=== PATIENT | female | born 1970 | race Caucasian/White ===

== ENCOUNTER 2020-03-18 09:50 | Outpatient (REF) | payer MEDICAID, SELFPAY ==
--- NOTE | 2020-03-18 | US_ITS ---
EXAMINATION: US ABDOMEN COMPLETE CLINICAL INFORMATION: Chronic hepatitis C. COMPARISON: Abdominal ultrasound dated 11/07/2017 TECHNIQUE: Real-time imaging of the abdominal viscera. FINDINGS: PANCREAS: The visualized head and body of the pancreas appears unremarkable. Remainder of the pancreas is obscured by bowel gas. ABDOMINAL AORTA: The proximal, mid and distal segments are normal in caliber. INFERIOR VENA CAVA: Visualized portions are normal. LIVER: Diffuse increased echogenicity. Question of mild intrahepatic biliary duct dilatation. No focal lesion demonstrated. GALLBLADDER: Surgically absent. COMMON BILE DUCT: Normal in caliber measuring 1.2 cm in diameter. RIGHT KIDNEY: Normal. No hydronephrosis. No renal calculi or focal parenchymal lesions. The kidney measures 12.0 cm in maximum dimension. LEFT KIDNEY: Normal. No hydronephrosis. No renal calculi or focal parenchymal lesions. The kidney measures 12.0 cm in maximum dimension. SPLEEN: Normal. The spleen measures 8.4 cm in maximum dimension. FREE FLUID: None. US/US abdomen complete IMPRESSION: 1. Mild diffuse increased hepatic parenchymal echogenicity, correlating with the clinical history of chronic hepatitis. No focal lesions demonstrated by ultrasound. 2. CBD measures 1.2 cm. Question of mild intrahepatic biliary duct dilatation. These findings could be related to prior cholecystectomy. Please clinically correlate, correlate with liver function tests. Further evaluation with MRCP as clinically warranted.
== END 2020-03-18 09:51 | disposition home or self-care (01) ==
LOC: HO.US 09:50
PROVIDERS: PCP Internal Medicine; Visit Provider Internal Medicine
DX: B18.2 Chronic viral hepatitis C (principal)
CPT/HCPCS: 76700

== ENCOUNTER 2023-02-07 13:49 | Outpatient (REF) | payer MEDICAID, SELFPAY ==
[2023-02-07 15:28] LABS: Alanine Aminotransferase 21 U/L (0-31); Albumin Level 3.9 g/dL (3.5-5.0); Alkaline Phosphatase 191 U/L (39-117); Aspartate Amino Transferase 11 U/L (5-31); Bilirubin Direct 0.1 mg/dL (0.0-0.5); Bilirubin Total 0.3 mg/dL (0.0-1.0); Total Protein 7.2 g/dL (6.5-8.0)
[2023-02-09 18:58] LABS: HCV Log PCR <1.18 NOT DETECTED Log IU/mL (NOT DETECTED); HepC Viral Load <15 NOT DETECTED IU/mL (NOT DETECTED)
== END 2023-02-07 13:50 | disposition home or self-care (01) ==
LOC: HO.CHCLDS 13:49
PROVIDERS: Visit Provider Family Medicine
DX: F11.20 Opioid dependence, uncomplicated (principal)
CPT/HCPCS: 36415; 80076; 87522

== ENCOUNTER 2023-04-12 10:28 | Outpatient (REF) | payer MEDICAID, SELFPAY ==
[2023-04-12 14:17] LABS: Estimated Average Glucose 292 mg/dL; Hemoglobin A1c % 11.8 % (<6.0)
[2023-04-12 14:46] LABS: Anion Gap 14 (12-20); Blood Urea Nitrogen 11 mg/dL (9-16); Calcium 9.6 mg/dL (8.4-10.2); Carbon Dioxide 27 mmol/L (22-29); Chloride 99 mmol/L (96-108); Estimated Glomerular Filt Rate > 60; Glucose Random 293 mg/dL (60-115); Potassium 3.9 mmol/L (3.3-5.1); Sodium 136 mmol/L (135-145)
== END 2023-04-12 10:29 | disposition home or self-care (01) ==
LOC: HO.CHCLDS 10:28
PROVIDERS: Visit Provider Internal Medicine
DX: E11.65 Type 2 diabetes mellitus with hyperglycemia (principal); Z79.4 Long term (current) use of insulin
CPT/HCPCS: 36415; 80048; 83036

== ENCOUNTER 2023-09-15 10:59 | Outpatient (REF) | payer MEDICAID, SELFPAY ==
[2023-09-15 14:31] LABS: MANUAL DIFF FLAG NO
[2023-09-15 14:40] LABS: Basophils Absolute Auto 0.1 X10*3/uL (0.0-0.2); Basophils Percent Auto 0.5 % (0-2); Eosinophils Absolute Auto 0.1 X10*3/uL (0.0-0.4); Eosinophils Percent Auto 1.2 % (0-4); Hematocrit 41.4 % (37.0-47.0); Hemoglobin 14.1 g/dl (12.0-16.0); Imm Gran Abs Auto 0.03 X10*3/uL (0.00-0.03); Imm Gran Pct Auto 0.3 % (0.0-0.4); Lymphocytes Absolute Auto 4.8 X10*3/uL (1.2-4.9); Lymphocytes Percent Auto 39.9 % (20-40); Mean Corpuscular HGB Conc 34.1 g/dl (31.0-35.0); Mean Corpuscular Hemoglobin 29.3 pg (27.0-33.0); Mean Corpuscular Volume 86.1 fL (80.0-98.0); Mean Platelet Volume 10.3 fL (9.4-12.3); Monocytes Absolute Auto 0.7 X10*3/uL (0.1-1.2); Monocytes Percent Auto 5.7 % (2-11); Neutrophils Absolute Auto 6.3 x10*3/uL (2.0-8.3); Neutrophils Percent Auto 52.4 % (45-73); Platelet Count 410 X10*3/uL (160-400); Red Blood Count 4.81 X10*6/uL (4.20-5.50); Red Cell Distribution Width 12.5 % (11.0-16.0); White Blood Count 11.9 X10*3/uL (4.8-10.8)
[2023-09-15 15:15] LABS: Anion Gap 16 (12-20); Blood Urea Nitrogen 11 mg/dL (9-16); Calcium 9.4 mg/dL (8.4-10.2); Carbon Dioxide 27 mmol/L (22-29); Chloride 102 mmol/L (96-108); Estimated Glomerular Filt Rate > 60; Glucose Random 134 mg/dL (60-115); Potassium 3.4 mmol/L (3.3-5.1); Sodium 142 mmol/L (135-145)
[2023-09-15 15:39] LABS: TSH reflex Free T4 0.66 uIU/mL (0.32-4.0)
[2023-09-15 15:44] LABS: Folate 8.2 ng/mL (> or = 4.0); Vitamin B12 870 pg/mL (200-900)
[2023-09-18 19:38] LABS: RPR Rapid Plasma Reagin NON-REACTIVE (NON-REACTIVE)
== END 2023-09-15 11:00 | disposition home or self-care (01) ==
LOC: HO.CHCLDS 10:59
PROVIDERS: Visit Provider Internal Medicine
DX: R41.3 Other amnesia (principal)
CPT/HCPCS: 36415; 80048; 82607; 82746; 84443; 85025; 86592

== ENCOUNTER 2023-10-24 12:55 | Outpatient (REF) | payer MEDICAID, SELFPAY ==
--- NOTE | 2023-10-24 13:03 | EEG_ITS ---
FINDINGS: Waking background activity consists of well-defined moderate voltage posterior 9 Hz alpha frequency intermixed with low voltage fast frequencies anteriorly. Occasional sharp configuration wave forms seen from the left hemisphere in the central and mid temporal distribution. Photic stimulation is without activation. Hyperventilation was omitted. IMPRESSION: This EEG is considered minimally abnormal due to occasional sharp configuration wave forms seen from the left central and temporal regions that may suggest mild cerebral irritability. Clinical correlation is suggested. If seizure disorder is strongly suspected, then a 24-48 hour ambulatory EEG is recommended. MD TIMOTHY Moore/PETR / [id number]
== END 2023-10-24 12:56 | disposition home or self-care (01) ==
LOC: HO.NEURO 12:55
PROVIDERS: PCP Internal Medicine; Visit Provider Internal Medicine
DX: R40.20 Unspecified coma (principal)
CPT/HCPCS: 95816

== ENCOUNTER 2024-01-31 07:25 | Outpatient (REF) | payer MEDICAID, SELFPAY ==
--- NOTE | 2024-01-31 07:30 | EEG_ITS ---
FINDINGS: The waking background activity consists of a moderate voltage posterior 9 to 10 hertz alpha frequency, intermixed with low-voltage fast frequencies and muscle artifact anteriorly. Recurrent isolated sharp transient seen on both hemispheres, both in the occipital region and in frontotemporal distribution. Bursts of sharp and slow wave discharges lasting approximately 1 second with high voltage sharp and slow activity suggestive of a paroxysmal disorder seen frequently throughout the record. Photic stimulation is without activation. Hyperventilation was omitted. IMPRESSION: This is an abnormal EEG due to recurrent paroxysmal bilateral occipital and frontotemporal paroxysmal discharges of sharp waves and sharp and slow complexes consistent with a seizure disorder. Clinical correlation is recommended. MD TIMOTHY Moore/PETR / [id number]
== END 2024-01-31 07:26 | disposition home or self-care (01) ==
LOC: HO.NEURO 07:25
PROVIDERS: PCP Internal Medicine; Visit Provider Internal Medicine
DX: R40.20 Unspecified coma (principal)
CPT/HCPCS: 95819

== ENCOUNTER 2024-04-23 14:28 | Outpatient (REF) | payer MEDICAID, SELFPAY ==
[2024-04-23 14:45] LABS: MANUAL DIFF FLAG NO
[2024-04-23 15:01] LABS: Basophils Absolute Auto 0.1 X10*3/uL (0.0-0.2); Basophils Percent Auto 0.7 % (0-2); Eosinophils Absolute Auto 0.2 X10*3/uL (0.0-0.4); Eosinophils Percent Auto 1.9 % (0-4); Hematocrit 41.3 % (37.0-47.0); Hemoglobin 14.3 g/dl (12.0-16.0); Imm Gran Abs Auto 0.02 X10*3/uL (0.00-0.03); Imm Gran Pct Auto 0.2 % (0.0-0.4); Lymphocytes Absolute Auto 3.8 X10*3/uL (1.2-4.9); Lymphocytes Percent Auto 42.6 % (20-40); Mean Corpuscular HGB Conc 34.6 g/dl (31.0-35.0); Mean Corpuscular Hemoglobin 29.8 pg (27.0-33.0); Mean Platelet Volume 9.5 fL (9.4-12.3); Monocytes Absolute Auto 0.6 X10*3/uL (0.1-1.2); Monocytes Percent Auto 6.3 % (2-11); Neutrophils Absolute Auto 4.3 x10*3/uL (2.0-8.3); Neutrophils Percent Auto 48.3 % (45-73); Platelet Count 364 X10*3/uL (160-400); Red Cell Distribution Width 12.8 % (11.0-16.0); White Blood Count 8.9 X10*3/uL (4.8-10.8)
[2024-04-23 15:28] LABS: Anion Gap 11 (12-20); Blood Urea Nitrogen 10 mg/dL (9-16); Calcium 8.9 mg/dL (8.4-10.2); Carbon Dioxide 27 mmol/L (22-29); Chloride 103 mmol/L (96-108); Estimated Glomerular Filt Rate > 60; Glucose Random 251 mg/dL (60-115); Sodium 137 mmol/L (135-145)
[2024-04-23 15:37] LABS: Erythrocyte Sedimentation Rate 17 MM/HR (0-20)
[2024-04-23 15:40] LABS: Albumin Level 3.9 g/dL (3.5-5.0); Bilirubin Direct 0.2 mg/dL (0.0-0.5); Bilirubin Total 0.2 mg/dL (0.0-1.0)
[2024-04-23 15:41] LABS: Aspartate Amino Transferase 19 U/L (5-31)
[2024-04-23 16:07] LABS: Alanine Aminotransferase 27 U/L (0-31); Alkaline Phosphatase 144 U/L (39-117)
== END 2024-04-23 14:29 | disposition home or self-care (01) ==
LOC: HO.LAB 14:28
PROVIDERS: Family Medicine; PCP Internal Medicine; Visit Provider Psychiatry & Neurology Neurology
DX: R51.9 Headache, unspecified (principal); F11.20 Opioid dependence, uncomplicated
CPT/HCPCS: 36415; 80048; 80076; 85025; 85652

== ENCOUNTER 2024-06-06 12:44 | Outpatient (REF) | payer MEDICAID, SELFPAY ==
--- NOTE | ~2024-06-06 | CT_ITS ---
EXAMINATION: CT HEAD WITHOUT IV CONTRAST HISTORY: MIGRAINE. TECHNIQUE: Unenhanced helical CT of the head was performed per standard departmental protocol. Coronal and sagittal reformats of the head were also evaluated. One or more of the following techniques was used for dose reduction: Automated exposure control, adjustment of the mA and/or kV according to patient size, use of iterative reconstruction technique. DLP: 777 mGy-cm COMPARISON: There are no prior studies for comparison. FINDINGS: BRAIN: The brain parenchyma is unremarkable. There is normal allen/white differentiation. The ventricular system is normal in size and configuration. There is no mass effect or midline shift. No intra- or extra-axial fluid collections are identified. SINUSES: The visualized paranasal sinuses are clear. The mastoid air cells and middle ear cavities are well pneumatized. ORBITS: The visualized orbits are unremarkable. BONES/SOFT TISSUES: The extracranial soft tissues are unremarkable. The calvarium is intact. No suspicious lytic or sclerotic lesions. CT/CT head/brain wo IV con IMPRESSION: Unremarkable unenhanced head CT. Electronically signed by: Kael Carvajal MD 06/06/2024 01:27 PM [facility]
--- OUTSIDE RECORDS SUMMARY | 2024-06-06 16:36 | XMS_ITS | Clinical Summary ---
Author Organization [facility] Address [address] [place] [address] Phone Care Team Providers Care Pricing Analyst Name Role Phone Physician, No Pcp Primary Care Provider Unavaila ble Allergies Active Allergy Reactions Criticality Noted Date Comments Iodinated Contrast Media Nausea And Vomiting Medium Medications No known medications Encounters Date Type Department Care Team Description 05/03/2024 10:23 AM EST - 05/03/2024 2:25 PM EST Emergency [facility] Emergency [address] [place] [address] Jefry Berumen MD Nausea and vomiting, unspecified vomiting type (Primary Dx) Discharge Disposition: Left Against Medical Advice from Last 3 Months Surgical History Surgery Date Site/Laterality Comments CHOLECYSTECTOMY Medical History Medical History Date Comments Depression Anxiety Social History Tobacco Use Types Packs/Day Years Used Date Smoking Tobacco: Every Day Cigarettes Smokeless Tobacco: Never Alcohol Use Standard Drinks/Week Comments Never 0 (1 standard drink = 0.6 oz pur e alcohol) Sex and Gender Information Value Date Recorded Sex Assigned at Female 05/03/2024 11:44 AM EST Gender Identity Female 05/03/2024 11:44 AM EST Sexual Orientation Straight 05/03/2024 11 :44 AM EST Job Start Date Occupation Industry Not on file Not on file Not on file Obstetrics History Last Filed Vital Signs Vital Sign Reading Time Taken Comments Blood Pressure 196/92 05/03/2024 10:20 AM EST Pulse 70 05/03/2024 10:20 AM EST Temperature 36.1 ??C (97 ??F) 05/03/2024 10:20 AM EST Respiratory Rate 16 05/03/2024 10:20 AM EST Oxygen Saturation 99% 05/03/2024 10:20 AM EST Inhaled Oxygen Concentration - - Weight 81.6 kg (180 lb) 05/03/2024 10:20 AM EST Height 157.5 cm (5' 2 ) 05/03/2024 10:20 AM EST Body Mass Index 32.92 05/03/2024 10:20 AM EST Plan of Treatment Health Maintenance Due Date Last Done Comments Breast Cancer Screening 1971 Pneumococcal Vaccine: Pediatrics (0 to 5 Years) and At-Risk Patients (6 to 64 Years) (1 of 2 - PCV) 1977 Diabetes: Annual Foot Exam 1981 Diabetes: Annual Retina Eye Exam 1981 Cervical Cancer Screening: P ap Smear 1992 Hepatitis B Vaccines (3 of 3 - 19+ 3-dose series) 08/20/2003 06/25/2003, 09/13/2001 Zoster Vaccines (1 of 2) 2021 DTaP,Tdap,and Td Vaccines (3 - Td or Tdap) 03/27/2022 03/27/2012, 09/13/2001 Colorectal Cancer Screening: Colonoscopy 04/10/2022 Hepatitis C Screening 04/10/2022 Lung Cancer Screening (Low Dose CT) 04/10/2022 Social Influencers of Health Screening 04/10/2022 Depression Screening 05/24/2023 05/24/2022 COVID-19 Vaccine ( - 2023-2 5 season) 2024 10/15/2020, 09/17/2020 Influenza Vaccine (#1) 2024 2, 01/26/2009 Diabetes: Annual Urine Albumin-Creatinine Ratio (uACR) 05/03/2024 Diabetes: Blood Sugar Contro l Test (HGBA1C) 05/03/2024 04/12/2023 Diabetes: Annual GFR (Glomerular Filtration Rate) 05/03/2025 05/03/2024 Cholesterol Screening (Lipid Panel) 09/27/2026 09/27/2021 Hepatitis A Vaccines Completed 03/11/2010, 09/10/2009 HIV Screening Completed 09/27/2021 HIB Vaccines Aged Out No longer eligi ble based on patient's age to complete this topic HPV Vaccines Aged Out No longer eligi ble based on patient's age to complete this topic IPV Vaccines Aged Out No longer eligi ble based on patient's age to complete this topic MMR Vaccines Aged Out No longer eligi ble based on patient's age to complete this topic Meningococcal ACWY Vaccine Aged Out N o longer eligible based on patient's age to complete this topic RSV Immunization Patients Under 20 months Aged Out No longer eligible b ased on patient's age to complete this topic Varicella Vaccines Aged Out No longer eligible based on patient's age to complete this topic Procedures Procedure Name Priority Date/Time Associated Diagnosis Comments TROPONIN I HIGH SENSITIVITY STAT 05/03/2024 12:[address] ABDOMEN PELVIS WO CONTRAST STAT 05/03/2024 11:56 AM EST TROPONIN I HIGH SENSITIVITY STAT 05/03/2024 11:38 AM EST ECG 12-LEAD STAT 05/03/2024 10:49 AM EST POCT GLUCOSE BLOOD Routine 05/03/2024 10 :45 AM EST HCG, SERUM, QUALITATIVE STAT Add-on 05/03/20 10:36 AM EST BETA HYDROXYBUTYRATE Add-On 05/03/2024 10:36 AM EST CBC WITH AUTO DIFFERENTIAL STAT 05/03/2024 10:36 AM EST LIPASE STAT 05/03/2024 10:36 AM EST COMPREHENSIVE METABOLIC PANEL STAT 05/03/2024 10:36 AM EST CBC AND DIFFERENTIAL STAT 05/03/2024 10:36 AM EST ECG ANNOTATED 05/03/2024 from Last 3 Months Results * Troponin I high sensitivity (NOW and then in 1 hour) (05/03/2024 12:56 PM EST) Only the most recent of2 resultswithin the time period is included. High Sensitivity Troponin I 3 <=54 ng/L LAB CHEMISTRY METHOD 05/03/2024 1:26 PM EST [facility] Blood Venous blood specimen / Unknown Venipuncture / Unknown 05/03/2024 12:56 PM EST 05/03/2024 1:03 PM EST Narrative [facility] - 05/03/2024 1:26 PM EST High levels of biotin in samples may falsely decrease hsTroponin values. ??Use caution when interpreting hsTroponin results in patients taking biotin who exhibit renal impairment (eGFR <60) or in patients taking more than 20 mg/day of biotin. Jefry Berumen MD LAB BLOOD ORDERABLES [facility] [address] [place] [address], * CT Abdomen Pelvis wo Contrast (05/03/2024 11:56 AM EST) Anatomical Region Laterality Modality Body Computed Tomogra phy 05/03/2024 12:1 2 PM EST Impressions 05/03/2024 12:17 PM EST No acute findings in the abdomen and pelvis. -------- FINAL REPORT -------- Dictated By: Diaz Rowland Dictated Date: 05/03/2024 12:12 ET Assigned Physician: Diaz Rowland Reviewed and Electronically Signed By: Diaz Rowland Signed Date: 05/03/2024 12:17 ET Workstation ID: [id number] Transcribed By: Self Edit Transcribed Date: 05/03/2024 12:12 ET Narrative 05/03/2024 12:[address] abdomen and pelvis, 05/03/2024. HISTORY: Abdominal pain, acute, no prior medical history. COMPARISON: 07/11/2023. TECHNIQUE: Noncontrast CT of the abdomen and pelvis with coronal and sagittal reformats. Dose length product: ??1092 mGy-cm. FINDINGS: Lung bases: There is a stable 3-4 mm nodule in the right middle lobe. ??Mosaic attenuation of both bases suggesting multifocal air trapping. Cardiac: Heart is mildly enlarged. ??Mild aortic annular calcification. Liver: Limited evaluation without intravenous contrast. ??No visible abnormality. Biliary: Cholecystectomy. ??Prominence of the common duct, as is often seen in the postcholecystectomy setting secondary to a reservoir effect. ??No visible ductal filling defect. Pancreas: Limited evaluation without intravenous contrast. ??Moderate parenchymal atrophy, most prominent at the level of the pancreatic head. Spleen: Limited evaluation without intravenous contrast. ??No visible abnormality. Adrenal glands: Stable small left adrenal nodule, too small for accurate YONY characterization. Kidneys: Limited evaluation without intravenous contrast. ??No visible abnormality. ??Normal appearance of the ureters. Retroperitoneum: No mass or adenopathy. Abdominal vasculature: Normal. Bowel/mesentery: No obstruction or adenopathy. ??No mass or ascites. ??Normal appendix. Abdominal wall: Normal. Pelvic nodes: No adenopathy. Pelvic organs: Normal. Bones: Mild degenerative changes of the spine. Procedure Note Diaz Rowland MD - 05/03/2024 CT abdomen and pelvis, 05/03/2024. HISTORY: Abdominal pain, acute, no prior medical history. COMPARISON: 07/11/2023. TECHNIQUE: Noncontrast CT of the abdomen and pelvis with coronal andsagittal reformats. Dose length product: 1092 mGy-cm. FINDINGS: Lung bases: There is a stable 3-4 mm nodule in the right middle lobe.Mosaic attenuation of both bases suggesting multifocal air trapping. Cardiac: Heart is mildly enlarged. Mild aortic annular calcification. Liver: Limited evaluation without intravenous contrast. No visibleabnormality. Biliary: Cholecystectomy. Prominence of the common duct, as is often seenin the postcholecystectomy setting secondary to a reservoir effect. Novisible ductal filling defect. Pancreas: Limited evaluation without intravenous contrast. Moderateparenchymal atrophy, most prominent at the level of the pancreatic head. Spleen: Limited evaluation without intravenous contrast. No visibleabnormality. Adrenal glands: Stable small left adrenal nodule, too small for accurateROI characterization. Kidneys: Limited evaluation without intravenous contrast. No visibleabnormality. Normal appearance of the ureters. Retroperitoneum: No mass or adenopathy. Abdominal vasculature: Normal. Bowel/mesentery: No obstruction or adenopathy. No mass or ascites.Normal appendix. Abdominal wall: Normal. Pelvic nodes: No adenopathy. Pelvic organs: Normal. Bones: Mild degenerative changes of the spine. IMPRESSION: No acute findings in the abdomen and pelvis. -------- FINAL REPORT -------- Dictated By: Diaz Rowland Dictated Date: 05/03/2024 12:12 ET Assigned Physician: Diaz Rowland Reviewed and Electronically Signed By: Diaz Rowland Signed Date: 05/03/2024 12:17 ET Workstation ID: [id number] Transcribed By: Self Edit Transcribed Date: 05/03/2024 12:12 ET Jefry Berumen MD IMG CT PROCEDURES * ECG 12 lead (05/03/2024 10:49 AM EST) Ventricular Rate ECG 67 BPM GEMUSE Atrial Rate 67 BPM GEMUSE P-R Interval 168 ms GEMUSE QRS Duration 90 ms GEMUSE Q-T Interval 442 ms GEMUSE QTc 467 ms GEMUSE P Wave Henning 51 degrees GEMUSE R Henning 12 degrees GEMUSE T Henning 40 degrees GEMUSE ECG Interpretation Normal sinus rhythm Normal ECG When compared with ECG of 30-NOV-2023 22:04, Sinus rhythm has replaced Electronic ventricular pacemaker Confirmed by Cynthia SHEEHAN JOHN ([id number]) on 05/04/2024 6:38:22 AM GEMUSE 05/03/2024 10:4 9 AM EST 05/04/2024 6:38 AM EST Jefry Berumen MD ECG ORDERABLES GEMUSE * (ABNORMAL) POCT Glucose, blood (05/03/2024 10:45 AM EST) Glucose POCT 288(H) 70 - 100 mg/dL 05/03/2024 10:46 AM EST [facility] Blood Capillary blood specimen / Unknown 05/03/2024 10:45 AM EST 05/03/2024 10:47 AM EST Jefry Berumen MD LAB POINT OF CARE TE ST DOCKED DEVICE UNSOLICITED RESULTS [facility] [address] [place] [address], * (ABNORMAL) Beta hydroxybutyrate (05/03/2024 10:36 AM EST) Beta-Hydroxybu tyrate 4.6(H) 0.2 - 2.8 mg/dL LAB CHEMISTRY METHOD 05/03/2024 11:56 AM EST [facility] Blood Venous blood specimen / Unknown Venipuncture / Unknown 05/03/2024 10:36 AM EST 05/03/2024 11:27 AM EST Jefry Berumen MD LAB BLOOD ORDERABLES Performing Organization Address [facility]/ZIP Co de Phone Number [facility] [address] [place] [address], * (ABNORMAL) CBC auto differential (05/03/2024 10:36 AM EST) WBC 13.7(H) 4.8 - 10.8 K/mcL LAB HEMETOLOGY METHOD 05/03/2024 11:32 AM [facility] RBC 5.30(H) 3.80 - 4.80 M/mcL LAB HEMETOLOGY METHOD 05/03/2024 11:32 AM [facility] Hemoglobin 15.7 11.5 - 16.0 g/dL LAB HEMETOLOGY METHOD 05/03/2024 11:32 AM [facility] Hematocrit 46.7 35.0 - 47.0 % LAB HEMETOLOGY METHOD 05/03/2024 11:32 AM [facility] MCV 87.9 79.0 - 98.0 FL LAB HEMETOLOGY METHOD 05/03/2024 11:32 AM [facility] MCH 29.6 27.0 - 32.0 pcg LAB HEMETOLOGY METHOD 05/03/2024 11:32 AM [facility] MCHC 33.6 32.0 - 37.0 g/dL LAB HEMETOLOGY METHOD 05/03/2024 11:32 AM [facility] RDW 13.0 11.0 - 15.0 % LAB HEMETOLOGY METHOD 05/03/2024 11:32 AM [facility] Platelets 428(H) 130 - 400 K/mcL LAB HEMETOLOGY METHOD 05/03/2024 11:32 AM [facility] MPV 9.9 7.0 - 11.0 FL LAB HEMETOLOGY METHOD 05/03/2024 11:32 AM [facility] NRBC 0.0 <1.0 % LAB HEMETOLOGY METHOD 05/03/2024 11:32 AM [facility] NRBC Absolute 0.00 <0.10 K/mcL LAB HEMETOLOGY METHOD 05/03/2024 11:32 AM [facility] Neutrophils Relative 76.2 % LAB HEMETOLOGY METHOD 05/03/2024 11:32 AM [facility] Lymphocytes Relative 17.2 % LAB HEMETOLOGY METHOD 05/03/2024 11:32 AM [facility] Monocytes Relative 5.7 % LAB HEMETOLOGY METHOD 05/03/2024 11:32 AM [facility] Eosinophils Relative 0.3 % LAB HEMETOLOGY METHOD 05/03/2024 11:32 AM [facility] Basophils Relative 0.4 % LAB HEMETOLOGY METHOD 05/03/2024 11:32 AM [facility] Immature Granulocytes Relative 0.2 % LAB HEMETOLOGY METHOD 05/03/2024 11:32 AM [facility] Neutrophils Absolute 10.40(H) 1.50 - 7.00 K/mcL LAB HEMETOLOGY METHOD 05/03/2024 11:32 AM EST [facility] Lymphocytes Absolute 2.35 1.00 - 5.00 K/mcL LAB HEMETOLOGY METHOD 05/03/2024 11:32 AM EST [facility] Monocytes Absolute 0.78 0.20 - 1.00 K/mcL LAB HEMETOLOGY METHOD 05/03/2024 11:32 AM EST [facility] Eosinophils Absolute 0.04 0.00 - 0.50 K/mcL LAB HEMETOLOGY METHOD 05/03/2024 11:32 AM EST [facility] Basophils Absolute 0.05 0.00 - 0.20 K/[facility] LAB HEMETOLOGY METHOD 05/03/2024 11:32 AM EST [facility] Immature Granulocytes Absolute 0.03 0.00 - 0.03 K/[facility] HEMETOLOGY METHOD 05/03/2024 11:32 AM EST [facility] Blood Venous blood specimen / Unknown Venipuncture / Unknown 05/03/2024 10:36 AM EST 05/03/2024 11:27 AM EST Jefry Berumen MD LAB BLOOD ORDERABLES [facility] [address] [place] [address], [place] [phone] * hCG, serum, qualitative (05/03/2024 10:36 AM EST) hCG Qual Negative Negative 05/03/2024 12:34 PM EST [facility] Blood Venous blood specimen / Unknown Venipuncture / Unknown 05/03/2024 10:36 AM EST 05/03/2024 11:27 AM EST Jefry Berumen MD LAB BLOOD ORDERABLES [facility] [address] [place] [address], [place] [phone] * Lipase (05/03/2024 10:36 AM EST) Lipase 19 13 - 75 unit/L LAB CHEMISTRY METHOD 05/03/2024 11:56 AM [facility] Blood Venous blood specimen / Unknown Venipuncture / Unknown 05/03/2024 10:36 AM EST 05/03/2024 11:27 AM EST Jefry Berumen MD LAB BLOOD ORDERABLES [facility] [address] [place] [address], * (ABNORMAL) Comprehensive metabolic panel (05/03/2024 10:36 AM EST) Pathologist [facility] Sodium 135 133 - 145 mmol/L LAB CHEMISTRY METHOD 05/03/2024 11:56 AM [facility] Potassium 3.8 3.5 - 5.5 mmol/L LAB CHEMISTRY METHOD 05/03/2024 11:56 AM [facility] Chloride 101 96 - 110 mmol/L LAB CHEMISTRY METHOD 05/03/2024 11:56 AM [facility] CO2 27 21 - 32 mmol/L LAB CHEMISTRY METHOD 05/03/2024 11:56 AM [facility] Anion Gap 7 3 - 11 LAB CHEMISTRY METHOD 05/03/2024 11:56 AM [facility] Glucose 264(H) 70 - 100 mg/dL LAB CHEMISTRY METHOD 05/03/2024 11:56 AM [facility] BUN 12 5 - 25 mg/dL LAB CHEMISTRY METHOD 05/03/2024 11:56 AM [facility] Creatinine 0.68 0.50 - 1.10 mg/dL LAB CHEMISTRY METHOD 05/03/2024 11:56 AM [facility] eGFR 105 >=60 mL/min/1. 73m2 LAB CHEMISTRY METHOD 05/03/2024 11:56 AM [facility] Comment:Calculation based on the??Chronic Kidney Disease Epidemiology Collaboration (CKD-EPI) equation refit??without adjustment for race. BUN/Creatinine Ratio 17.6 LAB CHEMISTRY METHOD 05/03/2024 11:56 AM [facility] Calcium 9.6 8.5 - 10.5 mg/dL LAB CHEMISTRY METHOD 05/03/2024 11:56 AM [facility] AST (SGOT) 20 10 - 42 unit/L LAB CHEMISTRY METHOD 05/03/2024 11:56 AM [facility] ALT (SGPT) 36 10 - 60 unit/L LAB CHEMISTRY METHOD 05/03/2024 11:56 AM [facility] Alkaline Phosphatase 178(H) 42 - 121 unit/L LAB CHEMISTRY METHOD 05/03/2024 11:56 AM [facility] Total Protein 8.0 6.0 - 8.0 g/dL LAB CHEMISTRY METHOD 05/03/2024 11:56 AM [facility] Albumin 4.1 3.2 - 5.0 g/dL LAB CHEMISTRY METHOD 05/03/2024 11:56 AM [facility] Total Bilirubin 0.3 0.0 - 1.4 mg/dL LAB CHEMISTRY METHOD 05/03/2024 11:56 AM [facility] Blood Venous blood specimen / Unknown Venipuncture / Unknown 05/03/2024 10:36 AM EST 05/03/2024 11:27 AM EST Jefry Berumen MD LAB BLOOD ORDERABLES [facility] [address] [place] [address], * ECG-Annotated (05/03/2024) Provider Onbase ECG ORDERABLES from Last 3 Months Care Teams Pricing Analyst Relationship Specialty Start Date End Date Physician, No Pcp PCP - General 05/03/24
--- OUTSIDE RECORDS SUMMARY | 2024-06-06 16:37 | XMS_ITS | Encounter Summary ---
Author Organization [employer] Address [address] [facility] 7 [place] [address] Care Team Providers Care Television Audio Engineer Name Role Phone Bonnie Gay MD Primary Care Provider [phone] Reason for Visit * Reason Onset Date Comments Appointment Request 08/18/2022 Encounter Details Date Type Department Care Team ([facility] st Contact Info) Description 08/18/[address] [facility] [address] [place] [address] Bonnie Gay MD [address] [place], [place] [phone] Appointment Request Social History Tobacco Use Types Packs/Day Years Used Date Smoking Tobacco: Former Cigarettes Smokeless Tobacco: Never Alcohol Use Standard Drinks/Week Comments Never 0 (1 standard drink = 0.6 oz pur e alcohol) Depression Answer Date Recorded Patient Health Questionnaire-9 Score 6 05/24/2022 Depression Answer Date Recorded Patient Health Questionnaire-2 Score 0 05/24/2022 Comments Unknown Sex and Gender Information Value Date Recorded Sex Assigned at Female 03/07/2022 10:16 AM EDT Legal Sex Female 10:16 AM EDT Gender Identity Female 03/07/2022 10:16 AM EDT Sexual Orientation Straight 03/07/2022 10 :16 AM EDT COVID-19 Exposure Response Date Recorded In the last 10 days, have yo u been in contact with someone who was confirmed or suspected to have Coronavirus/COVID-19? No / Unsure 07/25/2022 9:28 AM EDT documented as of this encounter Miscellaneous Notes * Telephone Encounter - Og Motta - 08/18/2022 10:01 AM EDT Tc from pt requesting to R/S appt on 08/18/22 ( RECALL DM due for A1c ) Please contact pt at [phone] documented in this encounter Plan of Treatment Upcoming Encounters Date Type Department Care Team ([facility] st Contact Info) Description 07/22/2024 9:00 AM EDT Clinical Support [facility] [address] [place] [address] Leslee Torres, RN documented as of this encounter Visit Diagnoses Diagnosis Opioid dependence, uncomplicated (CMS/HCC)- Primary documented in this encounter Additional Health Concerns Assessment Noted Time PHQ-9 Depression Total Score: 6 05/24/19 23 11:43 AM EST documented as of this encounter Care Teams Television Audio Engineer Relationship Specialty Start Date End Date Bonnie Gay MD [address] [place] [address] PCP - General Internal Medicine 04/17/15 documented as of this encounter
--- OUTSIDE RECORDS SUMMARY | 2024-06-06 16:37 | XMS_ITS | Encounter Summary ---
Author Organization [employer] Address [address] [place] [address] 7 [place] [address] Care Team Providers Care Woodworking Shop Laborer Name Role Phone Bonnie Gay MD Primary Care Provider [phone] Reason for Visit * Reason Comments Med Refill Encounter Details Date Type Department Care Team (Late Contact Info) Description 06/19/2023 Refill [facility] DIABETES/NUTRITION [address] [place], [place] [phone] Bonnie Gay MD 505 [place], [place] [phone] Primary insomnia; Insomnia, unspecified Social History Tobacco Use Types Packs/Day Years Used Date Smoking Tobacco: Every Day Cigarettes 1 30 Smokeless Tobacco: Never Comments:Would like to quit but it's so hard. Alcohol Use Standard Drinks/Week Comments Never 0 [...] Orientation Straight 03/07/2022 10 :16 AM EDT documented as of this encounter Plan of Treatment Upcoming Encounters Date Type Department Care Team ([facility] Contact Info) Description 07/22/2024 9:00 AM EDT Clinical Support [facility] CHC MED & PEDS [address] [place] [address] Leslee Torres, RN documented as of this encounter Visit Diagnoses Diagnosis Primary insomnia Persistent disorder of initiating or maintaining sleep Insomnia, unspecified documented in this encounter Additional Health Concerns Assessment Noted Time PHQ-9 Depression Total Score: 6 05/24/19 23 11:43 AM EST documented as of this encounter Care Teams Woodworking Shop Laborer Relationship Specialty Start Date End Date Bonnie Gay MD [address] [place] [address] [place] Watters [address] PCP - General Internal Medicine 04/17/15 documented as of this encounter
--- OUTSIDE RECORDS SUMMARY | 2024-06-06 16:37 | XMS_ITS | Encounter Summary ---
Author Organization [employer] Address [address] [place] [address] 7 [place] [address] Care Team Providers Care Kier Drier Name Role Phone Bonnie Gay MD Primary Care Provider [phone]- [phone] Encounter Details Date Type Department Care Team ([facility] Contact Info) Description 09/26/2023 Orders Only [facility] MED & PEDS 505 [place] [address] Bonnie Gay MD 505 [place] [address] Social History Tobacco Use Types Packs/Day Years [...] Upcoming Encounters Date Type Department Care Team (Late st Contact Info) Description 07/22/2024 9:00 AM EDT Clinical Support [facility] MED & PEDS [address] [place] [address] Leslee Torres, RN documented as of this encounter Visit Diagnoses Not on filedocumented in this encounter Additional Health Concerns Assessment Noted Time PHQ-9 Depression Total Score: 6 05/24/19 23 11:43 AM EST documented as of this encounter Care Teams Kier Drier Relationship Specialty Start Date End Date Bonnie Gay MD 505 [place] [address] PCP - General Internal Medicine 04/17/15 documented as of this encounter
--- OUTSIDE RECORDS SUMMARY | 2024-06-06 16:37 | XMS_ITS | Encounter Summary ---
Author Organization [employer] Address [address] [place] [address] 7t [place] [address] Care Team Providers Care Telecommunications Technician Name Role Phone Bonnie Gay MD Primary Care Provider [phone] Reason for Visit * Reason Onset Date Comments Med Refill 05/14/2024 Encounter Details Date Type Department Care Team (Late Contact Info) Description 05/14/2024 Refill [facility] MEDICINE [address] [place], [place] [phone] Leslee Torres, RN Opioid dependence, uncomplicated ([facility]) Social History Tobacco Use Types Packs/Day Years [...] Description 07/22/2024 9:00 AM EDT Clinical Support [facility] CHC MED & PEDS [address] [place], [place] [phone] Leslee Torres, RN documented as of this encounter Visit Diagnoses Diagnosis Opioid dependence, uncomplicated (CMS/HCC) documented in this encounter Additional Health Concerns Assessment Noted Time PHQ-9 Depression Total Score: 6 05/24/19 23 11:43 AM EST documented as of this encounter Care Teams Telecommunications Technician Relationship Specialty Start Date End Date Bonnie Gay MD 505 [place] [address] PCP - General Internal Medicine 04/17/15 documented as of this encounter
--- OUTSIDE RECORDS SUMMARY | 2024-06-06 16:37 | XMS_ITS | Encounter Summary ---
Author Organization [employer] Address [address] [place] [address] 7 [place] [address] Care Team Providers Care Turf Sales Person Name Role Phone Bonnie Gay MD Primary Care Provider [phone] Reason for Referral * Imaging (Routine) - Canceled Specialty Diagnoses / Procedures Referred By Contac t Referred To Contact Diagnoses LOC (loss of consciousness) (CMS/HCC) Procedures Ambulatory EEG Bonnie Gay MD [address] [place] [phone] Phone: tel: fax: Referral ID Status Reason Start Date Expiration Date V isits Requested Visits Authorized [id number] Canceled 11/08/2023 11/07/2024 1 1 * Imaging (Routine) - Authorized Specialty Diagnoses / Procedures Referred By Contismael t Referred To Contact Diagnoses LOC (loss of consciousness) ([facility]) Procedures Ambulatory EEG Bonnie Gay MD 505 [place] [address] Phone: tel: fax: [address] Phone: tel: fax: Referral ID Status Reason Start Date Expiration Date V isits Requested Visits Authorized [id number] Authorized 11/01/2023 10/31/2024 1 1 Encounter Details Date Type Department Care Team (Late Contact Info) Description 11/01/2023 Orders Only [facility] MED & PEDS [address] [place] [address] Bonnie Gay MD [address] [place] [address] LOC (loss of consciousness) ([facility]) (Primary Dx) Social History Tobacco Use Types Packs/Day Years [...] Encounters Date Type Department Care Team (Late Contact Info) Description 07/22/2024 9:00 AM EDT Clinical Support [facility] MED & PEDS [address] [place] [address] Leslee Torres, CHIRAG Scheduled Orders Name Type Priority Associated Diagnoses Orde r Schedule Ambulatory EEG Neurology Routine LOC (loss of consciousness) ([facility]) Expected: 11/01/2023 (Approximate), Expires: 10/31/2024 Ambulatory EEG Neurology Routine LOC (loss of consciousness) ([facility]) Expected: 11/08/2023 (Approximate), Expires: 11/07/2024 documented as of this encounter Visit Diagnoses Diagnosis LOC (loss of consciousness) ([facility])- Primary Other alteration of consciousness documented in this encounter Additional Health Concerns Assessment Noted Time PHQ-9 Depression Total Score: 6 05/24/19 23 11:43 AM EST documented as of this encounter Care Teams Turf Sales Person Relationship Specialty Start Date End Date Bonnie Gay MD [address] [place] [id number] PCP - General Internal Medicine 04/17/15 documented as of this encounter
--- OUTSIDE RECORDS SUMMARY | 2024-06-06 16:37 | XMS_ITS | Encounter Summary ---
Author Organization [employer] Address [address] [facility] 7t [place] [address] Care Team Providers Care Mud Worker Name Role Phone Bonnie Gay MD Primary Care Provider [phone] Reason for Visit * Reason Comments OBAT F/U Encounter Details Date Type Department Care Team ([facility] Contact Info) Description 2024 9:00 AM EST Office Visit [facility] MED & PEDS [address] [place], [place] [phone] Tucker Moore MD 230 [place] [address] Opioid type dependence, continuous (CMS/HCC) (Primary Dx) Social History Tobacco Use Types [...] AM EDT documented as of this encounter Progress Notes * Tucker Moore MD - 2024 9:00 AM EST Patient here today for Opioid Dependence RV. Patient on current Suboxone dose of 20/5 mg on a 8-week schedule. Patient reports taking medication as prescribed, no adverse effects. Pt has been in the program for 9 years. Induction date: 06/02/15. Patient connected with integrated integrated therapist. No longer seeing Clemente Morin for psych. Mass CLAMSHELL OPERATOR reviewed by provider. COVID vaccinated. Last PCP Appt: 09/14/23 LFTs done 05/03/2024 T-spot - Negative 08/06/18 Hep A and Hep B - Immune Hep C: HCV RNA VL undetectable (09/27/21) LAST OBAT VISIT 04/01/2024 UTOX: POS BUP, THC, TCA NEG ALL OTHER SUBSTANCES Patient presents for OUD OBAT Denies relapse or cravings Tolerating the current dose of Buprenorphine/Naloxone 20mg/5mg daily States post-menopausal for >1 year Denies any risk for HIV (states zero risk); declines PrEP History of Hep C; previous HCV RNA VL undetectable Suboxone dosing schedule and management of side effects reviewed Recovery support, harm reduction, and behavioral health attendance reviewed Appointment for 7 weeks provided (due to holiday schedule) Recommended to check LFT Patient expressed understanding and agreement with continuing plan of care TODAY OBAT VISIT 2024 UTOX: POS BUP, THC NEG ALL OTHER SUBSTANCES Patient presents for OUD OBAT Denies relapse or cravings Tolerating the current dose of Buprenorphine/Naloxone 20mg/5mg daily States post-menopausal for >1 year Denies any risk for HIV (states zero risk); declines PrEP History of Hep C; previous HCV RNA VL undetectable Suboxone dosing schedule and management of side effects reviewed Recovery support, harm reduction, and behavioral health attendance reviewed Appointment for 9 weeks provided Patient expressed understanding and agreement with continuing plan of care Review of Systems Psychiatric/Behavioral: Negative for behavioral problems and dysphoric mood. The patient is not nervous/anxious. Physical Exam Constitutional: Appearance: Normal appearance. Pulmonary: Effort: Pulmonary effort is normal. Neurological: Mental Status: She is alert. Psychiatric: Mood and Affect: Mood normal. Behavior: Behavior normal. Jo-Ann was seen today for obat f/u . Diagnoses and all orders for this visit: Opioid type dependence, continuous (CMS/HCC) (Primary) - POCT KAYLA-14 Urine Drug Screen Patient presents for a routine OUD OBAT visit Discussed treatment options for opioid dependence Patient is tolerating current treatment of Buprenorphine/Naloxone SL Discussed behavioral modification and accessing services Counseling provided with a focus on support system, tools for achieving/maintaining recovery Reviewed barriers for these goals Discussed strategies to address when faced situations that may trigger use Continue with current visit schedule Narcan use discussed [place] reviewed Reviewed risk assessment for family planning, STI and PrEP Follow up in 9 weeks This information has been disclosed to you from records protected by federal confidentiality rules (42 CFR Part 2). The federal rules prohibit you from making any further disclosure of information inthis record that identifies a patient as having or having had a substance use disorder either directly, by reference to publicly available information, or through verification of such identification by another person unless further disclosure is expressly permitted by the written consent of the individual whose information is being disclosed or as otherwise permitted by (see2.3.1). The federal rules restrict any use of the information to investigate or prosecute with regard to a crime any patient with a substance use disorder, except as provided at 2.12??(5) and 2.65. documented in this encounter Plan of Treatment Upcoming Encounters Date Type Department Care Team (Late st Contact Info) Description 07/22/2024 9:00 AM EDT Clinical Support [facility] MED & PEDS [address] [place] [address] Leslee Torres RN documented as of this encounter Procedures Procedure Name Priority Date/Time Associated Diagnosis Comments POCT KAYLA-14 URINE DRUG SCREEN Routine 2024 9:08 AM EST Opioid type dependence, continuous ([facility]) documented in this encounter Results * POCT KAYLA-14 Urine Drug Screen (2024 9:08 AM EST) THC Positive Cocaine Screen, Urine Negative Opiate Screen, Urine Negative Methamphetamine Screen Urine Negative Amphetamine Screen, Urine Negative Benzodiazepines Screen, Urine Negative Barbiturate Screen, Urine Negative Methadone Screen, Urine Negative Buprenophine Screen, Urine Positive TCA, Urine Negative MDMA Urine Negative ng/mL Oxycodone Screen, Urine Negative Phencyclidine (PCP), Urine Negative Propoxyphene, Urine Negative Fentanyl, Urine Negative Urine Urine specimen obtained by clean catch procedure / Unknown 2024 9:08 AM EST Tucker Moore MD POINT OF CARE TEST ENTER/EDIT OR DERABLES Final Result documented in this encounter Visit Diagnoses Diagnosis Opioid type dependence, continuous ([facility])- Primary Opioid type dependence, continuous documented in this encounter Additional Health Concerns Assessment Noted Time PHQ-9 Depression Total Score: 6 05/24/19 23 11:43 AM EST documented as of this encounter Care Teams Mud Worker Relationship Specialty Start Date End Date Bonnie Gay MD [address] [place] [address] PCP - General Internal Medicine 04/17/15 documented as of this encounter
--- OUTSIDE RECORDS SUMMARY | 2024-06-06 16:37 | XMS_ITS | Encounter Summary ---
Author Organization [employer] Address [address] [place] [address] [place] [address] Care Team Providers Care Odd Bundle Worker Name Role Phone Bonnie Gay MD Primary Care Provider [phone]- [phone] Reason for Visit * Reason Onset Date Comments Nurse Triage 10/21/2022 Encounter Details Date Type Department Care Team ([facility] st Contact Info) Description 10/21/2022 Telephone [facility] CHC MED & PEDS [address] [place] [address] Bonnie Gay MD [address] [place] [address] Nurse Triage Social History Tobacco Use Types Packs/Day Years [...] encounter Miscellaneous Notes * Telephone Encounter - Shari Crook RN - 10/21/2022 3:44 PM EDT Triage call Pt reports woke up yesterday morning 10/20 , with left shoulder pain. Pt didn't recall any injury, heavy lifting or anything unusual in activity the day before. Pt is able to bend elbow but, can't lift arm to shoulder level. Unable to make fully closed fist and has some numbness in left hand/fingers. Pt denies any neck pain. Pt did go to ED but, left due to wait time. Pt is taking aleve for pain with some effect. Pt is advised to use ice/heat for pain and give arm support. Apt 10/25 @1100am [facility]. Pt insurance is verified as active prior to booking. Protocol Used: Shoulder Pain (Adult) Protocol-Based Disposition: See in Office or Video Visit within 3 Days Video visit not offered Positive Triage Question: * Moderate pain (e.g., interferes with normal activities) and present > 3 days * All higher-acuity triage questions were negative Care Advice Discussed: * Reassurance and Education - Shoulder Pain * Pain Medicines * Pain Medicines - Extra Notes and Warnings * Reasons To Call Back - Chest pain or difficulty breathing occurs - Moderate pain (e.g., interferes with normal activities) lasts over 3 days - Mild pain lasts over 7 days - You become worse * Use a Cold Pack for Pain * Use Heat on Area After 48 Hours * Rest vs. Movement * Telephone Encounter - Erinn Bunch - 10/21/2022 3:16 PM EDT Symptom: Shoulder Pain - Not From Injury (left) Outcome: Schedule an urgent appointment (within 1 hour) or talk to a nurse or provider soon Reason: Can't use the shoulder normally The caller accepted this outcome documented in this encounter Plan of Treatment Upcoming Encounters Date Type Department Care Team (Late st Contact Info) Description 07/22/2024 9:00 AM EDT Clinical Support [facility] MED & PEDS [address] [place] [address] Leslee Torres, RN documented as of this encounter Visit Diagnoses Not on filedocumented in this encounter Additional Health Concerns Assessment Noted Time PHQ-9 Depression Total Score: 6 05/24/19 23 11:43 AM EST documented as of this encounter Care Teams Odd Bundle Worker Relationship Specialty Start Date End Date Bonnie Gay MD [address] [place] [id number] PCP - General Internal Medicine 04/17/15 documented as of this encounter
--- OUTSIDE RECORDS SUMMARY | 2024-06-06 16:37 | XMS_ITS | Encounter Summary ---
Author Organization [employer] Address [address] [facility] 7 [place] [address] Care Team Providers Care Refrigeration Manager Name Role Phone Bonnie Gay MD Primary Care Provider [phone] Reason for Visit * Reason Onset Date Comments new med 11/13/2023 Encounter Details Date Type Department Care Team (Late st Contact Info) Description 11/13/2023 Telephone [facility] MEDICINE [address] [place] [address] Bonnie Gay MD [address] [place], [place] [phone] new med Social History Tobacco Use Types Packs/Day Years [...] encounter Miscellaneous Notes * Telephone Encounter - Mily Cantrell - 11/13/2023 12:06 PM EDT Tc from pt requesting migraine medication that can be taken with her regular meds, stated discussedwith PCP before. documented in this encounter Plan of Treatment Upcoming Encounters Date Type Department Care Team ([facility] st Contact Info) Description 07/22/2024 9:00 AM EDT Clinical Support [facility] MED & PEDS [address] [place] [address] Leslee Torres, RN documented as of this encounter Visit Diagnoses Not on filedocumented in this encounter Additional Health Concerns Assessment Noted Time PHQ-9 Depression Total Score: 6 05/24/19 23 11:43 AM EST documented as of this encounter Care Teams Refrigeration Manager Relationship Specialty Start Date End Date Bonnie Gay MD [address] [place] [address] PCP - General Internal Medicine 04/17/15 documented as of this encounter
--- OUTSIDE RECORDS SUMMARY | 2024-06-06 16:37 | XMS_ITS | Encounter Summary ---
Author Organization [employer] Address [address] [place] [address] 7 [place] [address] Care Team Providers Care Dry Wall Plasterer Name Role Phone Bonnie Gay MD Primary Care Provider [phone]- [phone] Reason for Visit * Reason Comments Med Refill Encounter Details Date Type Department Care Team (Late Contact Info) Description 05/17/2024 Refill [facility] CHC MED & PEDS [address] [place] [address] Bonnie Gay MD 505 [place] [address] Primary insomnia; Insomnia, unspecified Social History Tobacco [...] Description 07/22/2024 9:00 AM EDT Clinical Support [facility] CHC MED & PEDS [address] [place] [address] Leslee Torres, RN documented as of this encounter Visit Diagnoses Diagnosis Primary insomnia Persistent disorder of initiating or maintaining sleep Insomnia, unspecified documented in this encounter Additional Health Concerns Assessment Noted Time PHQ-9 Depression Total Score: 6 05/24/19 23 11:43 AM EST documented as of this encounter Care Teams Dry Wall Plasterer Relationship Specialty Start Date End Date Bonnie Gay MD [address] [place] [address] [place] [id number] PCP - General Internal Medicine 04/17/15 documented as of this encounter
--- OUTSIDE RECORDS SUMMARY | 2024-06-06 16:37 | XMS_ITS | Encounter Summary ---
Author Organization [employer] Address [address] [facility] 7t [place] [address] Care Team Providers Care Bag Sewer Name Role Phone Bonnie Gay MD Primary Care Provider [phone] Encounter Details Date Type Department Care Team (Latest Contact Info) Description 2024 Travel Social History Tobacco Use Types Packs/Day Years [...] 07/22/2024 9:00 AM EDT Clinical Support [facility] MED & PEDS [address] [place] [address] Leslee Torres, RN documented as of this encounter Visit Diagnoses Not on filedocumented in this encounter Additional Health Concerns Assessment Noted Time PHQ-9 Depression Total Score: 6 05/24/19 23 11:43 AM EST documented as of this encounter Care Teams Bag Sewer Relationship Specialty Start Date End Date Bonnie Gay MD [address] [place] [address] PCP - General Internal Medicine 04/17/15 documented as of this encounter
--- OUTSIDE RECORDS SUMMARY | 2024-06-06 16:37 | XMS_ITS | Encounter Summary ---
Author Organization [employer] Address [address] [facility] 7 [place] [address] Care Team Providers Care Field Sales Consultant Name Role Phone Bonnie Gay MD Primary Care Provider [phone]- [phone] Reason for Visit * Reason Onset Date Comments Call Back Request 08/23/2023 Encounter Details Date Type Department Care Team ([facility] st Contact Info) Description 08/23/2023 Telephone [facility] MEDICINE [address] [place] [address] Bonnie Gay MD 505 [place], [place] [phone] Call Back Request Social History Tobacco Use Types Packs/Day [...] encounter Miscellaneous Notes * Telephone Encounter - Wing Andres RN - 08/23/2023 3:34 PM EDT Just for your FYI. Pt stated her glucose sensor came off when taking off her bra and was asking fornext steps. Informed pt that she would have to call the company to send another sensor, or do finger sticks for a week before putting on the next sensor. Pt stated she would do finger sticks for a week and verbalized understanding and acceptance of plan. * Telephone Encounter - Mily Cantrell - 08/23/2023 9:55 AM EDT Tc from pt requesting a call back, stated when taking out her bra, sensor came out and don't know what to do. documented in this encounter Plan of Treatment Upcoming Encounters Date Type Department Care Team (Late st Contact Info) Description 07/22/2024 9:00 AM EDT Clinical Support [facility] MED & PEDS [address] [place] [address] Leslee Torres, CHIRAG documented as of this encounter Visit Diagnoses Not on filedocumented in this encounter Additional Health Concerns Assessment Noted Time PHQ-9 Depression Total Score: 6 05/24/19 23 11:43 AM EST documented as of this encounter Care Teams Field Sales Consultant Relationship Specialty Start Date End Date Bonnie Gay MD [address] [place] [address] PCP - General Internal Medicine 04/17/15 documented as of this encounter
--- OUTSIDE RECORDS SUMMARY | 2024-06-06 16:37 | XMS_ITS | Encounter Summary ---
Author Organization [employer] Address [address] [place] [address] 7 [place] [address] Care Team Providers Care Fish And Wildlife Biologist Name Role Phone Bonnie Gay MD Primary Care Provider [phone] Reason for Referral * Consultation (Routine) - Closed Specialty Diagnoses / Procedures Referred By Contac t Referred To Contact Neurology Diagnoses LOC (loss of consciousness) (CMS/HCC) Disturbance of memory Bonnie Gay MD [address] [place] [address] Phone: tel: fax: Robel Rodriguez MD [address] [place] [address], [address] [place] [address] Phone: tel: fax: Referral ID Status Reason Start Date Expiration Date V isits Requested Visits Authorized [id number] Closed Specialty Services Required 02/14/2024 02/13/2025 1 1 Encounter Details Date Type Department Care Team ([facility] st Contact Info) Description 02/14/2024 Orders Only [facility] [address] [place], [place] [phone] Bonnie Gay MD [address] [place], [place] [phone] LOC (loss of consciousness) (CMS/HCC) (Primary Dx); Disturbance of memory Social History Tobacco Use Types Packs/Day Years [...] Upcoming Encounters Date Type Department Care Team ([facility] st Contact Info) Description 07/22/2024 9:00 AM EDT Clinical Support [facility] [address] [place] [address] Leslee Torres, RN documented as of this encounter Procedures Procedure Name Priority Date/Time Associated Diagnosis Comments AMB REFERRAL TO NEUROLOGY Routine 04/23/2024 LOC (loss of consciousness) (CMS/HCC) Disturbance of memory documented in this encounter Results * Referral to Neurology (04/23/2024) us Bonnie Gay MD OUTPATIENT REFERRAL ORDERAB LES Final Result documented in this encounter Visit Diagnoses Diagnosis LOC (loss of consciousness) (CMS/HCC)- Primary Other alteration of consciousness Disturbance of memory Memory loss documented in this encounter Additional Health Concerns Assessment Noted Time PHQ-9 Depression Total Score: 6 05/24/19 23 11:43 AM EST documented as of this encounter Care Teams Fish And Wildlife Biologist Relationship Specialty Start Date End Date Bonnie Gay MD [address] [place] [address] PCP - General Internal Medicine 04/17/15 documented as of this encounter
--- OUTSIDE RECORDS SUMMARY | 2024-06-06 16:37 | XMS_ITS | Clinical Summary ---
Author Organization [employer] Address [address] [place] [address] 7t [place] [address] Care Team Providers Care Manager Distribution Name Role Phone Bonnie Gay MD Primary Care Provider [phone]- [phone] Allergies Active Allergy Reactions Criticality Noted Date Comments Venlafaxine 04/18/2022 Medications albuterol (ProAir HFA) 108 (90 Base) MCG/ACT inhaler Inhale 2 puffs every 4 (four) hours if needed. 022 Active glucose-vitamin C 4-6 GM-MG oral gel 1 tab if FS < 70 mg/dl or if having symptoms of hypoglycemia 021 Active hydrOXYzine pamoate (Vistaril) 50 MG capsule TAKE ONE CAPSULE FOUR TIMES DAILY 022 Active meclizine (Antivert) 12.5 MG tablet Take 12.5 mg by mouth every 8 (eight) hours. 022 Active nicotine polacrilex (Commit) 2 MG lozengeIndicatio ns:Tobacco dependence Dissolve 1 lozenge (2 mg) in the mouth every 2 (two) hours if needed for smoking cessation. 100 lozenge 3 023 Active FREESTYLE LITE test stripIndications :Type 2 diabetes mellitus with hyperglycemia, with long-term current use of insulin ([facility]) TEST BLOOD SUGAR FIVE TIMES DAILY 200 strip 5 023 Active Easy Touch Lancets 33G/Twist misc TEST BLOOD SUGAR DAILY 100 each 3 023 Active Elastic Bandages & Supports (Wrist Brace Deluxe) miscIndications: Carpal tunnel syndrome of left wrist To use daily 1 each 023 Active albuterol (2.5 MG/3ML) 0.083% nebulizer solution INHALE ONE AMPULE USING A NEBULIZER THREE TIMES DAILY NEEDED 90 mL 1 023 Active Trulicity 0.75 MG/0.5ML solution pen-injectorIndi cations:Type 2 diabetes mellitus with hyperglycemia, with long-term current use of insulin ([facility]) INJECT ONE PEN (=0.75MG) SUBCUTANEOUSLY ONCE A WEEK DIRECTED 2 mL 3 023 Active Continuous Blood Gluc Investigative Agent (FreeStyle Jeffy 2 [place]) deviceIndication s:Type 2 diabetes mellitus with hyperglycemia, with long-term current use of insulin ([facility]) To check the blood sugar daily 1 each 023 Active insulin pen needle (Pentips) 32G x 4 mm misc Inject under the skin 4 times daily. Use as instructed Twice daily 100 each 11 023 Active traZODone (Desyrel) 100 MG tabletIndication s:Primary insomnia TAKE ONE TABLET AT BEDTIME 30 tablet 2 024 Active QUEtiapine (SEROquel) 50 MG tabletIndication s:Insomnia, unspecified TAKE ONE TABLET BY MOUTH EVERY MORNING AND TWO TABLETS EVERY NIGHT DIRECTED 90 tablet 2 024 Active insulin lispro (HumaLOG KWIKPEN) 100 UNIT/ML injectionIndicat ions:Type 2 diabetes mellitus with hyperglycemia, with long-term current use of insulin ([facility]) 8 units before evening meals 3 mL 11 024 Active Lantus SoloStar 100 UNIT/ML pen INJECT 34 UNITS SUBCUTANEOUSLY EVERY EVENING 30 mL 11 024 Active Diclofenac Sodium 1 % gelIndications:C arpal tunnel syndrome of left wrist APPLY 2 GRAM'S TO AFFECTED AREA(s) THREE TIMES DAILY NEEDED 100 g 3 024 Active Continuous Glucose Sensor (FreeStyle Jeffy 2 Sensor) miscIndications: Type 2 diabetes mellitus with hyperglycemia, with long-term current use of insulin ([facility]) USE DIRECTED AND CHANGE EVERY 14 DAYS 2 each 024 Active buprenorphine-na loxone (Suboxone) 4-1 MG per sublingual filmIndications: Opioid dependence, uncomplicated ([facility]) Place 1 Film under the tongue Once per day. Do not start before May 24, 2024. 28 Film 1 025 2024 Active Buprenorphine HCl-Naloxone HCl (Suboxone) 8-2 MG SL filmIndications: Opioid dependence, uncomplicated (CMS/HCC) Place 2 Film under the tongue Once per day. Do not start before May 24, 2024. 56 Film 1 025 2024 Active traZODone (Desyrel) 100 MG tabletIndication s:Primary insomnia TAKE ONE TABLET BY MOUTH AT BEDTIME 30 tablet 2 025 Active QUEtiapine (SEROquel) 50 MG tabletIndication s:Insomnia, unspecified TAKE ONE TABLET BY MOUTH EVERY MORNING AND TAKE TWO TABLETS AT BEDTIME 90 tablet 2 025 Active traZODone (Desyrel) 100 MG tabletIndication s:Primary insomnia TAKE ONE TABLET BY MOUTH AT BEDTIME 30 tablet 2 024 2024 Discontinued QUEtiapine (SEROquel) 50 MG tabletIndication s:Insomnia, unspecified TAKE ONE TABLET BY MOUTH EVERY MORNING AND TAKE TWO TABLETS AT BEDTIME 90 tablet 2 024 2024 Discontinued buprenorphine-na loxone (Suboxone) 4-1 MG per sublingual filmIndications: Opioid dependence, uncomplicated (CMS/HCC) Place 1 Film under the tongue Once per day. 28 Film 1 024 2024 Discontinued(R eorder (will not trigger notification to Pharmacy)) Buprenorphine HCl-Naloxone HCl (Suboxone) 8-2 MG SL filmIndications: Opioid dependence, uncomplicated (CMS/HCC) Place 2 Film under the tongue Once per day. 56 Film 1 024 2024 Discontinued(R eorder (will not trigger notification to Pharmacy)) Active Problems Problem Noted Date Diagnosed Date Cough 05/25/2022 Chronic anxiety 07/01/2021 Heavy cigarette smoker 03/26/2021 Asthma 12/09/2020 Diabetes mellitus 05/08/2014 Carpal tunnel syndrome 05/18/2012 Chronic hepatitis C 05/18/1999 Opioid abuse 05/18/1999 Encounters Date Type Department Care Team Description 06/06/2024 Orders Only [facility] External Provider, [facility] 2024 9:00 AM EST Office Visit [facility] [address] [place] [address] Tucker Moore MD Opioid type dependence, continuous (CMS/HCC) (Primary Dx) 2024 Travel 05/17/2024 Refill [facility] [address] [place] [address] Bonnie Gay MD Primary insomnia; Insomnia, unspecified 05/14/2024 Refill [facility] [address] [place] [address] Leslee Torres, CHIRAG Opioid dependence, uncomplicated (CMS/HCC) 04/22/2024 Refill [facility] [address] [place] [address] Bonnie Gay MD Type 2 diabetes mellitus with hyperglycemia, with long-term current use of insulin (CMS/HCC) 04/16/2024 Telephone [facility] [address] [place] [address] Bonnie Gay MD No Show 04/11/2024 Telephone [facility] [address] [place] [phone] Bonnie Gay MD Nurse Triage 04/11/2024 Telephone [facility] [address] [place] [address] Bonnie Gay MD No Show 04/01/2024 9:30 AM EST Office Visit [facility] [address] [place] [address] Tucker Moore MD Opioid type dependence, continuous (CMS/HCC) (Primary Dx) 04/01/2024 Travel 03/25/2024 Telephone [facility] [address] [place] [address] Bonnie Gay MD triage 03/22/2024 Refill [facility] [address] [place] [address] Brinda Yang, CHRIAG Opioid dependence, uncomplicated (CMS/HCC) from Last 3 Months Social History Tobacco Use Types Packs/Day Years Used Date Smoking Tobacco: Every Day Cigarettes 1 30 Smokeless Tobacco: Never Tobacco Cessation:Ready to Q uit: Yes; Counseling Given: Yes Comments:Would like to quit but it's so [...] Orientation Straight 03/07/2022 10 :16 AM EDT Last Filed Vital Signs Vital Sign Reading Time Taken Comments Blood Pressure 157/95 09/14/2023 4:12 PM EDT Pulse 92 09/14/2023 4:12 PM EDT Temperature 36.3 ??C (97.3 ??F) 09/14/2023 4:12 PM ED T Respiratory Rate 19 09/14/2023 4:12 PM EDT Oxygen Saturation 96% 09/14/2023 4:12 PM EDT Inhaled Oxygen Concentration - - Weight 78.5 kg (173 lb) 09/14/2023 4:12 PM EDT Height 156 cm (5' 1.42 ) 09/14/2023 4:12 PM EDT Body Mass Index 32.24 09/14/2023 4:12 PM EDT Plan of Treatment Upcoming Encounters Date Type Department Care Team (Late st Contact Info) Description 07/22/2024 9:00 AM EDT Clinical Support [facility] [address] [place] [address] Leslee Torres, CHIRAG Health Maintenance Due Date Last Done Comments CT Colonography 1971 Colonoscopy 1971 Colorectal Cancer Screening 1971 FIT DNA/Cologuard 1971 FIT 1971 FOBT 1971 SDOH Screening 1971 Sigmoidoscopy 1971 Diabetes: Foot Exam 1981 Eye Exam 1981 Alcohol/Substance Use Screening 1983 Pneumococcal Vaccine: 50+ Years (1 of 2 - PCV) 1990 Pap Smear 1992 Cervical Cancer Screening 2001 HPV/Cotest 2001 Hepatitis B Vaccines (3 of 3 - 19+ 3-dose series) 08/20/2003 06/25/2003, 09/13/2001 Mammogram 2011 Zoster Vaccines (1 of 2) 2021 Diabetes: Urine Protein Screening 09/27/2022 09/27/2021, 03/03/2020 Lipid Panel 09/27/2022 09/27/2021, 03/03/2020 Depression Screening 05/24/2023 05/24/2022, 05/24/2022 Diabetes: Hemoglobin A1C 07/12/2023 023, 03/08/2023, 09/19/2022 COVID-19 Vaccine (3 - 2023-2 5 season) 2024 10/15/2020, 09/17/2020 Influenza Vaccine (#1) 2024 2, 01/26/2009 Tobacco Screening 04/12/2024 04/12/2023 DTaP/Tdap/Td Vaccines (3 - T d or Tdap) 04/17/2025 04/17/2015, 03/27/2012, 09/13/2001 RSV Patients and Patients Aged 60 years or older (1 - 1-dose 75+ series) 2046 Hepatitis A Vaccines Completed 03/11/2010, 09/10/2009 HIV Screening Completed 09/27/2021 HIB Vaccines Aged Out No longer eligi ble based on patient's age to complete this topic HPV Vaccines Aged Out No longer eligi ble based on patient's age to complete this topic IPV Vaccines Aged Out No longer eligi ble based on patient's age to complete this topic Meningococcal Vaccine Aged Out No tiara demarcus eligible based on patient's age to complete this topic RSV under 20 months Aged Out No longe r eligible based on patient's age to complete this topic Rotavirus Vaccines Aged Out No longer eligible based on patient's age to complete this topic Procedures Procedure Name Priority Date/Time Associated Diagnosis Comments CT HEAD WO CONTRAST Routine 06/06/2024 1 :00 PM EST POCT KAYLA-14 URINE DRUG SCREEN Routine 2024 9:08 AM EST Opioid type dependence, continuous (CMS/HCC) HEPATIC FUNCTION PANEL Routine 04/23/2024 2:43 PM EST Opioid type dependence, continuous (CMS/HCC) AMB REFERRAL TO NEUROLOGY Routine 04/23/2024 LOC (loss of consciousness) (CMS/HCC) Disturbance of memory POCT KAYLA-14 URINE DRUG SCREEN Routine 04/01/2024 11:53 AM EST Opioid type dependence, continuous (CMS/HCC) HEMOGLOBIN A1C Routine 04/12/2023 10:32 AM EST Type 2 diabetes mellitus with hyperglycemia, with long-term current use of insulin (CMS/HCC) ALBUMIN, RANDOM URINE W/CREATININE Routine 09/27/2021 10:10 AM EDT HIV 1/2 ANTIGEN/ANTIBODY, FOURTH GENERATION W/RFL Routine 09/27/2021 9:50 AM EDT LIPID PANEL, STANDARD Routine 09/27/2021 9:49 AM EDT from Last 3 Months or Most Recently Relevant to Health Maintenance Results * CT Head w/o Contrast (06/06/2024 1:00 PM EST) Anatomical Region Laterality Modality Head, Neck Computed Tomogra phy 06/06/2024 1:00 PM EST Narrative 06/06/2024 1:30 PM EST ? [facility] ?[address] ?[place] [address] ? CT Scan Report ? Signed ? Patient: Carlitos,Debbie ?MR#: [id number] ?? 58 ? : 1970 ?Acct:[id number] ? Age/Sex: 54 / F ?ADM Date: 01/30/25 ? Loc: HO.CT ? Attending Dr: Julio Rodriguez MD ? Ordering Physician: Julio Rodriguez MD ?? Date of Service: 06/06/24 ?? Procedure(s): CT head/brain wo IV con ?? Accession Number(s): [id number] ? cc: Bonnie Gay MD; Julio Rodriguez MD ? Report Number: ?? [id number]: Total DLP = ??777.00 mGy-cm ?? EXAMINATION: CT HEAD WITHOUT IV CONTRAST ? HISTORY: MIGRAINE. ? TECHNIQUE: ? Unenhanced helical CT of the head was performed per standard ?? departmental protocol. Coronal and sagittal reformats of the head were ?? also evaluated. One or more of the following techniques was used for ?? dose reduction: Automated exposure control, adjustment of the mA and/or ?? kV according to patient size, use of iterative reconstruction technique. ? DLP: 777 mGy-cm ? COMPARISON: There are no prior studies for comparison. ? FINDINGS: ? BRAIN: ??The brain parenchyma is unremarkable. There is normal ?? allen/white differentiation. The ventricular system is normal in size ?? and configuration. ??There is no mass effect or midline shift. ??No ?? intra- or extra-axial fluid collections are identified. ? SINUSES: The visualized paranasal sinuses are clear. ??The mastoid air ?? cells and middle ear cavities are well pneumatized. ? ORBITS: The visualized orbits are unremarkable. ? BONES/SOFT TISSUES: The extracranial soft tissues are unremarkable. The ?? calvarium is intact. No suspicious lytic or sclerotic lesions. ? CT/CT head/brain wo IV con ?? IMPRESSION: ?? Unremarkable unenhanced head CT. ? Electronically signed by: ??Kael Carvajal MD ??06/06/2024 01:27 PM EST ?? RP ? Dictated By: ?Kael Carvajal MD ? Signed By: ?<Electronically signed by Kael Carvajal MD in OV> ?06/06/25 1327 ? DD/DT: 06/06/ 1300 ? TD/TT: 06/06/ 1320 ? Professor Of Anthropology: ? Procedure Note Bradly, Image - 01/30/[address] [address] [address] Scan Report Signed Patient: Sheela Urbina#: [id number] 58 : 1970Acct:[id number] Age/Sex: 54 / FADM Date: 06/06/24 Loc: HO.CT Attending Dr: Julio Rodriguez MD Ordering Physician: Julio Rodriguez MD Date of Service: 06/06/24 Procedure(s): CT head/brain wo IV con Accession Number(s): [id number] cc: Bonnie Gay MD; Julio Rodriguez MD Report Number: [id number]: Total DLP = 777.00 mGy-cm EXAMINATION: CT HEAD WITHOUT IV CONTRAST HISTORY: MIGRAINE. TECHNIQUE: Unenhanced helical CT of the head was performed per standard departmental protocol. Coronal and sagittal reformats of the head were also evaluated. One or more of the following techniques was used for dose reduction: Automated exposure control, adjustment of the mA and/or kV according to patient size, use of iterative reconstruction technique. DLP: 777 mGy-cm COMPARISON: There are no prior studies for comparison. FINDINGS: BRAIN: The brain parenchyma is unremarkable. There is normal allen/white differentiation. The ventricular system is normal in size and configuration. There is no mass effect or midline shift. No intra- or extra-axial fluid collections are identified. SINUSES: The visualized paranasal sinuses are clear. The mastoid air cells and middle ear cavities are well pneumatized. ORBITS: The visualized orbits are unremarkable. BONES/SOFT TISSUES: The extracranial soft tissues are unremarkable. The calvarium is intact. No suspicious lytic or sclerotic lesions. CT/CT head/brain wo IV con IMPRESSION: Unremarkable unenhanced head CT. Electronically signed by: Kael Carvajal MD 06/06/2024 01:27 PM [facility] Dictated By: Kael Carvajal MD Signed By: <Electronically signed by Kael Carvajal MD in OV> 06/06/24 1327 DD/ 1300 TD/TT: 06/06/24 1320 Professor Of Anthropology: [facility] External Provider IMG CT PROCEDURES Final Result * POCT KAYLA-14 Urine Drug Screen (2024 9:08 AM EST) Only the most recent of2 resultswithin the time period is included. THC Positive Cocaine Screen, Urine Negative Opiate [...] procedure / Unknown 2024 9:08 AM EST Result [facility] Tucker Moore MD POINT OF CARE TEST ENTER/EDIT OR DERABLES Final Result * (ABNORMAL) Hepatic Function Panel (04/23/2024 2:43 PM EST) Bilirubin, Total 0.2 0.0 - 1.0 mg/dL [facility] Bilirubin, Direct 0.2 0.0 - 0.5 mg/dL [facility] Aspartate Amino Transferase 19 5 - 31 U/L [facility] Alanine Aminotransferase 27 0 - 31 U/L [facility] Total Protein 7.0 6.5 - 8.0 g/dL [facility] Albumin Level 3.9 3.5 - 5.0 g/dL [facility] Alkaline Phosphatase 144(H) 39 - 117 U/L [facility] Blood Venous blood specimen / Unknown 04/23/2024 2:43 PM EST 04/23/2024 2:43 PM EST Result [facility] Tucker Moore MD LAB BLOOD ORDERABLES Final Resul t Performing Organization Address [facility] Co de Phone Number [facility] [address] [place] [address] [phone] * Referral to Neurology (04/23/2024) us Bonnie Gay MD OUTPATIENT REFERRAL ORDERAB LES Final Result * (ABNORMAL) Hemoglobin A1c (04/12/2023 10:32 AM EST) Hemoglobin A1c 11.8(H) <6.0 % [facility] Comment:Hemoglobin A1C Refer ence Range Adults: 4.8 - 6.0 % Non diabetic: < 6.0 % Goal: < 7.0 %Additional Action Suggested: > 8.0 %Note: Hemoglobin A1c results are invalid for patients with abnormal amounts of HbF. Blood transfusions may impact the HbA1c concentration in the patient sample. Estimated Average Glucose 292 mg/dL [facility] Comment:eAG = Estimated ave rage glucose which is %A1C expressed asaverage glucose, using the formula of the O2S-LnnadslRpuzoph Glucose study (ADAG), Diabetes Care, Vol.31,#8,Dec. 2007 Blood Venous blood specimen / Unknown 04/12/2023 10:32 AM EST 04/12/2023 2:04 PM EST us Bonnie Gay MD LAB BLOOD ORDERABLES Final Result Performing Organization Address [facility] Co de Phone Number [facility] [address] [place] [address] [phone] * ALBUMIN, RANDOM URINE W/CREATININE (09/27/2021 10:10 AM EDT) Microalbumin Urine 0.8 See Note: mg/dL [facility] Comment: Reference Range: ?? Reference Range Not established Microalb/Creat Ratio 4 <30 mcg/mg creat [facility] Comment: ?? The ADA defines abnormalities in albumin excretion as follows: ?? Albuminuria Category ?Result (mcg/mg creatinine) ?? Normal to Mildly increased ?? <30 Moderately increased ? 30-299 ?? Severely increased ? > OR = 300 ?? The ADA recommends that at least two of three specimens collected within a 3-6 month period be abnormal before considering a patient to be within a diagnostic category. Creatinine, Urine 190 20 - 275 mg/dL [facility] 09/27/2021 10:1 0 AM EDT Bonnie Gay MD LAB URINE ORDERABLES Final Result Performing Organization Address [facility] Phone Number [facility] [address] [place] [address], * HIV 1/2 ANTIGEN/ANTIBODY,FOURTH GENERATION W/RFL (09/27/2021 9:50 AM EDT) HIV-1/2 ANTIGEN AND ANTIBODIES, 4TH GENERATION W/ REFLEX NON-REACT SLOAN NON-REACT SLOAN [facility] Comment: HIV-1 antigen and HIV-1/HIV-2 antibodies were not detected. There is no laboratory evidence of HIV infection. ?? PLEASE NOTE: This information has been disclosed to you from records whose confidentiality may be protected by state law. ??If your state requires such protection, then the state law prohibits you from making any further disclosure of the information without the specific written consent of the person to whom it pertains, or as otherwise permitted by law. A general authorization for the release of medical or other information is NOT sufficient for this purpose. ? For additional information please refer to http://education.[employer]/faq/GNG722 (This link is being provided for informational/ educational purposes only.) ? The performance of this assay has not been clinically validated in patients less than 2 years old. ?? 09/27/2021 9:50 AM EDT Tucker Moore MD LAB BLOOD ORDERABLES Final Resul t Performing Organization Address [facility] Phone Number [facility] [address] [place] [address], * (ABNORMAL) LIPID PANEL, STANDARD (09/27/2021 9:49 AM EDT) Chol/HDLC Ratio 3.9 <5.0 (calc) [facility] Cholesterol, Total 152 <200 mg/dL [facility] HDL Cholesterol 39(L) > OR = 50 mg/dL [facility] LDL Cholesterol 93 mg/dL (calc) [facility] Comment: Reference range: <100 ?? Desirable range <100 mg/dL for primary prevention; ?? <70 mg/dL for patients with CHD or diabetic patients ?? with > or = 2 CHD risk factors. ?? LDL-C is now calculated using the Ramona ?? calculation, which is a validated novel method providing ?? better accuracy than the Friedewald equation in the ?? estimation of LDL-C. ?? Bertrand SINGER et al. HAILEY. 2013;310(19): 4107-1274 ?? (http://Pembe Panjur.BRAIN/faq/ULQ380) Non-HDL Cholesterol 113 <130 mg/dL (calc) [facility] Comment: For patients with diabetes plus 1 major ASCVD risk ?? factor, treating to a non-HDL-C goal of <100 mg/dL ?? (LDL-C of <70 mg/dL) is considered a therapeutic ?? option. Triglycerides 107 <150 mg/dL [facility] 09/27/2021 9:49 AM EDT us Bonnie Gay MD LAB BLOOD ORDERABLES Final Result [facility] [address] from Last 3 Months or Most Recently Relevant to Health Maintenance Insurance [employer] C3 Care Teams Manager Distribution Relationship Specialty Start Date End Date Bonnie Gay MD [address] [place] [id number] PCP - General Internal Medicine 04/17/15
== END 2024-06-06 12:45 | disposition home or self-care (01) ==
LOC: HO.CT 12:44
PROVIDERS: PCP Internal Medicine; Visit Provider Psychiatry & Neurology Neurology
DX: G43.909 Migraine, unspecified, not intractable, without status migrainosus (principal)
CPT/HCPCS: 70450

== ENCOUNTER → 2024-06-06 12:46 | Outpatient (BNV) | payer MEDICAID, SELFPAY | PROVIDERS: PCP Internal Medicine; Visit Provider Radiology Diagnostic Radiology | DX: G43.909 Migraine, unspecified, not intractable, without status migrainosus (principal) | CPT/HCPCS: 70450 ==

== ENCOUNTER 2024-08-01 13:26 | Outpatient (REF) | payer MEDICAID, SELFPAY ==
--- NOTE | ~2024-08-01 | XR_ITS ---
EXAMINATION: XR SHOULDER, LEFT CLINICAL INFORMATION: bilateral shoulder pain COMPARISON: None available. TECHNIQUE: AP external rotation, Grashey, scapular Y, and axillary views of the left shoulder. FINDINGS: Normal bone mineralization. No fracture, dislocation, or suspicious bone lesion. Normal alignment. The glenohumeral joint is normal. The AC joint is normal. There is a type III acromion. No undersurface spurring. The subacromial space is preserved. Remainder of the soft tissue and bony structures appear normal. XR/XR shoulder LT min 2V IMPRESSION: Normal left shoulder. Electronically signed by: Santiago Livingston MD 08/01/2024 01:58 PM EDT
--- NOTE | ~2024-08-01 | XR_ITS ---
EXAMINATION: XR SHOULDER, RIGHT CLINICAL INFORMATION: bilateral shoulder pain COMPARISON: None available. TECHNIQUE: AP external rotation, Grashey, scapular Y, and axillary views of the right shoulder. FINDINGS: Normal bone mineralization. No fracture, dislocation, or suspicious bone lesion. Normal alignment. The glenohumeral joint is normal. The AC joint is normal. There is a type III acromion. No undersurface spurring. The subacromial space is preserved. There is calcification of the supraspinatus tendon abutting the insertion on the greater tuberosity. Remainder of the soft tissue and bony structures appear normal. XR/XR shoulder RT min 2V IMPRESSION: 1. Mild to moderate calcific tendinopathy of the supraspinatus tendon. 2. No acute bony abnormalities. Electronically signed by: Santiago Livingston MD 08/01/2024 02:00 PM EDT
--- OUTSIDE RECORDS SUMMARY | 2024-08-01 16:45 | XMS_ITS | Encounter Summary ---
Author Organization [employer] Address [address] [place] [address] [place] [address] Care Team Providers Care Ventilating Equipment Installer Name Role Phone Bonnie Gay MD Primary Care Provider [phone]- [phone] Reason for Visit * Reason Onset Date Comments Nurse Triage 10/21/2022 Encounter Details Date Type Department Care Team ([facility] st Contact Info) Description 10/21/2022 Telephone [facility] MED & PEDS [address] [place] [address] Bonine Gay MD 505 [place] [address] Nurse Triage Social History Tobacco Use Types [...] and give arm support. Apt 10/25 @1100am [facility]. Pt insurance is verified as active prior [...] Care Team (Late st Contact Info) Description 09/16/2024 9:00 AM EDT Office Visit [facility] MED & PEDS [address] [place] [address] Tucker Moore MD [address] [place] [address] documented as of this encounter Visit Diagnoses Not on filedocumented in this encounter Additional Health Concerns Assessment Noted Time PHQ-9 Depression Total Score: 6 05/24/19 23 11:43 AM EST documented as of this encounter Care Teams Ventilating Equipment Installer Relationship Specialty Start Date End Date Bonnie Gay MD [address] [place] [address] PCP - General Internal Medicine 04/17/15 documented as of this encounter
--- OUTSIDE RECORDS SUMMARY | 2024-08-01 16:45 | XMS_ITS | Encounter Summary ---
Author Organization [id number] Address [address] [place] [address] 7t [place] [address] Care Team Providers Care Gasoline Attendant Name Role Phone Bonnie Gay MD Primary Care Provider [phone] Reason for Visit * Reason Onset Date Comments Error (VOID this visit) 07/08/2024 Encounter Details Date Type Department Care Team ([facility] Contact Info) Description 07/08/2024 Telephone [facility] MEDICINE [address] [place], [place] [phone] Leslee Torres, RN Error (VOID this visit) Social History Tobacco Use Types Packs/Day Years [...] Upcoming Encounters Date Type Department Care Team ([facility] Contact Info) Description 09/16/2024 9:00 AM EDT Office Visit [facility] MED & PEDS [address] [place], [place] [phone] Tucker Moore MD [address] [place], [place] [phone] documented as of this encounter Goals Goal Patient Goal Type Associated Problems Recent Progress Patient-Stated? Author Take extra good care of health during Covid infection. General Yes Leslee Torres RN documented as of this encounter Visit Diagnoses Not on filedocumented in this encounter Additional Health Concerns Assessment Noted Time PHQ-9 Depression Total Score: 6 05/24/19 23 11:43 AM EST documented as of this encounter Care Teams Gasoline Attendant Relationship Specialty Start Date End Date Bonnie Gay MD [address] [place] [address] PCP - General Internal Medicine 04/17/15 documented as of this encounter
--- OUTSIDE RECORDS SUMMARY | 2024-08-01 16:45 | XMS_ITS | Encounter Summary ---
Author Organization [employer] Address [address] [facility] 7 [place] [address] Care Team Providers Care Cork Molder Name Role Phone Bonnie Gay MD Primary Care Provider [phone] Reason for Visit * Reason Onset Date Comments Appointment Request 08/18/2022 Encounter Details Date Type Department Care Team ([facility] st Contact Info) Description 08/18/2022 Telephone [facility] MEDICINE 230 [place] [address] Bonnie Gay MD 505 [place], [place] [phone] Appointment Request Social History Tobacco Use Types [...] for A1c ) Please contact pt at [phone] documented in this encounter Plan of Treatment Upcoming Encounters Date Type Department Care Team ([facility] st Contact Info) Description 09/16/2024 9:00 AM EDT Office Visit [facility] MED & PEDS [address] [place] [address] Tucker Moore MD [address] [place], [place] [phone] documented as of this encounter Visit Diagnoses Diagnosis Opioid dependence, uncomplicated (CMS/HCC)- Primary documented in this encounter Additional Health Concerns Assessment Noted Time PHQ-9 Depression Total Score: 6 05/24/19 23 11:43 AM EST documented as of this encounter Care Teams Cork Molder Relationship Specialty Start Date End Date Bonnie Gay MD [address] [place] [address] PCP - General Internal Medicine 04/17/15 documented as of this encounter
--- OUTSIDE RECORDS SUMMARY | 2024-08-01 16:45 | XMS_ITS | Encounter Summary ---
Author Organization [employer] Address [address] [place] [address] 7 [place] [address] Care Team Providers Care Toxicology Supervisor Name Role Phone Bonnie Gay MD Primary Care Provider [phone] Reason for Referral * Imaging (Routine) - Canceled Specialty Diagnoses / Procedures Referred By Contac t Referred To Contact Diagnoses LOC (loss of consciousness) (CMS/HCC) Procedures Ambulatory EEG Bonnie Gay MD [address] [place] [phone] Phone: tel: fax: Referral ID Status Reason Start Date Expiration Date V isits Requested Visits Authorized [id number] Canceled 11/08/2023 11/07/2024 1 1 * Imaging (Routine) - Authorized Specialty Diagnoses / Procedures Referred By Contismael t Referred To Contact Diagnoses LOC (loss of consciousness) ([facility]) Procedures Ambulatory EEG Bonnie Gay MD 505 [place] [address] Phone: tel: fax: [address] Phone: tel: fax: Referral ID Status Reason Start Date Expiration Date V isits Requested Visits Authorized [id number] Authorized 11/01/2023 10/31/2024 1 1 Encounter Details Date Type Department Care Team (Late Contact Info) Description 11/01/2023 Orders Only [facility] MED & PEDS [address] [place] [address] Bonnie Gay MD [address] [place] [address] LOC (loss of consciousness) (CMS/[facility]) (Primary Dx) Social History Tobacco [...] Department Care Team (Late Contact Info) Description 09/16/2024 9:00 AM EDT Office Visit [facility] MED & PEDS [address] [place] [address] Tucker Moore MD [address] [place] [address] Scheduled Orders Name Type Priority Associated Diagnoses Orde r Schedule Ambulatory EEG Neurology Routine LOC (loss of consciousness) ([facility]/HCC) Expected: 11/01/2023 (Approximate), Expires: 10/31/2024 Ambulatory EEG Neurology Routine LOC (loss of consciousness) ([facility]) Expected: 11/08/2023 (Approximate), Expires: 11/07/2024 documented as of this encounter Visit Diagnoses Diagnosis LOC (loss of consciousness) (CMS/HCC)- Primary Other alteration of consciousness documented in this encounter Additional Health Concerns Assessment Noted Time PHQ-9 Depression Total Score: 6 05/24/19 23 11:43 AM EST documented as of this encounter Care Teams Toxicology Supervisor Relationship Specialty Start Date End Date Bonnie Gay MD [address] [place] [address] PCP - General Internal Medicine 04/17/15 documented as of this encounter
--- OUTSIDE RECORDS SUMMARY | 2024-08-01 16:45 | XMS_ITS | Encounter Summary ---
Author Organization [employer] Address [address] [facility] 7t [place] [address] Care Team Providers Care Barrel Inspector Name Role Phone Bonnie Gay MD Primary Care Provider [phone] Reason for Referral * Consultation (Routine) - Closed Specialty Diagnoses / Procedures Referred By Kasi chen Referred To Contact Physical Therapy Diagnoses Chronic pain of both shoulders Taylor Amezquita MD [address] [place] [address] Phone: tel: fax: Physical Therapy, AT [address] [place] [address] Dr Vazquez [place], [place] Phone: tel: fax: Referral ID Status Reason Start Date Expiration Date V isits Requested Visits Authorized [id number] Closed Specialty Services Required 08/01/2024 08/01/2025 1 1 Reason for Visit * Reason Comments Mass Shoulder Pain Wrist Pain Encounter Details Date Type Department Care Team (Late st Contact Info) Description 08/01/2024 2:00 PM EDT Office Visit [facility] [address] [place], [place] [phone] Taylor Amezquita MD [address] [place] [phone] Chest wall discomfort (Primary Dx); Chronic pain of both shoulders; Carpal tunnel syndrome of left wrist Social History Tobacco Use Types Packs/Day Years Used Date Smoking Tobacco: Every Day Cigarettes 1 30 Smokeless Tobacco: Never Tobacco Cessation:Ready to Q uit: Not Asked; Counseling Given: Not Answered Comments:Would like to quit but it's so [...] AM EDT documented as of this encounter Last Filed Vital Signs Vital Sign Reading Time Taken Comments Blood Pressure 128/80 08/01/2024 12:54 PM EDT Pulse 77 08/01/2024 12:54 PM EDT Temperature 36.7 ??C (98 ??F) 08/01/2024 12:54 PM EDT Respiratory Rate 17 08/01/2024 12:54 PM EDT Oxygen Saturation - - Inhaled Oxygen Concentration - - Weight 76.9 kg (169 lb 9.6 oz) 08/01/2024 12:54 PM EDT Height 156 cm (5' 1.42 ) 08/01/2024 12:54 PM EDT Body Mass Index 31.61 08/01/2024 12:54 PM EDT documented in this encounter Progress Notes * Uvaldo Silverio - 08/01/2024 2:00 PM EDT Subjective Patient ID: Jo-Ann Urbina is a 54 y.o. female with past medical history of diabetes, hypertension, cholecystectomy, as well as anxiety and depression who presents to walk in clinic for Mass, ShoulderPain, and Wrist Pain. Pt reports the past couple weeks she has noticed a protrusion in the middle of her chest. She denies any trauma or skin changes. She also reports chronic pain to bilateral shoulders and reports pain due to carpel tunnel on left wrist. Review of Systems Constitutional: Negative for fatigue, fever and unexpected weight change. Respiratory: Negative for cough. Cardiovascular: Negative for chest pain. Gastrointestinal: Negative for abdominal pain. Genitourinary: Negative for difficulty urinating. Objective Visit Vitals BP 128/80 (BP Location: Left arm, Patient Position: Sitting, BP Cuff Size: Adult) Pulse 77 Temp 98 ??F (36.7 ??C) (Oral) Resp 17 Body mass index is 31.61 kg/m??. Physical Exam Constitutional: Appearance: Normal appearance. Cardiovascular: Rate and Rhythm: Normal rate and regular rhythm. Heart sounds: Normal heart sounds. Pulmonary: Effort: Pulmonary effort is normal. Breath sounds: Normal breath sounds. Chest: Chest wall: No mass, tenderness or crepitus. Breasts: Michael Score is 5. Breasts are symmetrical. Right: Normal. No inverted nipple, mass, nipple discharge or skin change. Left: Normal. No inverted nipple, mass, nipple discharge or skin change. Musculoskeletal: Right shoulder: No deformity or crepitus. Left shoulder: No deformity or crepitus. Lymphadenopathy: Upper Body: Right upper body: No supraclavicular or axillary adenopathy. Left upper body: No supraclavicular or axillary adenopathy. Neurological: General: No focal deficit present. Mental Status: She is alert. Psychiatric: Behavior: Behavior normal. Problem List Items Addressed This Visit Chest wall discomfort - Primary Reported protrusion of mid chest, on exam appreciated normal Xiphoid process. Reassured pt and encouraged not to palpate as this may cause discomfort/pain. Chronic pain of both shoulders Exam benign. -ordered bilateral XR's 08/01/24. -referred to PT 08/01/24. Relevant Orders XR Shoulder 2+ Views Left XR Shoulder 2+ Views Right Referral to Physical Therapy Carpal tunnel syndrome Pain to left wrist. -referred to PT 08/01/24 -No evidence of acute disease process. Suspect chronic pain and prominence of Xiphoid process due to recent weight loss. Symptoms mild. -Ordered XR's and referred to therapy. -ER precautions discussed. -Seek medical attention for worsening symptoms. IUvaldo, am serving as a scribe to document services personally performed by Dr. Hendricks, based on the patient's response to questions by provider and providers statements to me. documented in this encounter Miscellaneous Notes * Assessment & Plan Note - Uvaldo Silverio - 08/01/2024 1:07 PM EDTAssociated Problem(s): Chronic pain of both shoulders Exam benign. -ordered bilateral XR's 08/01/24. -referred to PT 08/01/24. * Assessment & Plan Note - Uvaldo Silverio - 08/01/2024 1:07 PM EDTAssociated Problem(s): Carpal tunnel syndrome Pain to left wrist. -referred to PT 08/01/24 * Assessment & Plan Note - Uvaldo Silverio - 08/01/2024 1:07 PM EDTAssociated Problem(s): Chest wall discomfort Reported protrusion of mid chest, on exam appreciated normal Xiphoid process. Reassured pt and encouraged not to palpate as this may cause discomfort/pain. documented in this encounter Plan of Treatment Upcoming Encounters Date Type Department Care Team (Late st Contact Info) Description 09/16/2024 9:00 AM EDT Office Visit [facility] MED & PEDS [address] [place] [address] Tucker Moore MD [address] [place] [address] Scheduled Referrals Name Type Priority Associated Diagnoses Orde r Schedule Referral to Physical Therapy Outpatient Referral Routine Chronic pain of both shoulders Expected: 08/01/2024 (Approximate), Expires: 08/01/2025 documented as of this encounter Goals Goal Patient Goal Type Associated Problems Recent Progress Patient-Stated? Author Take extra good care of health during Covid infection. General Yes Leslee Torres RN documented as of this encounter Procedures Procedure Name Priority Date/Time Associated Diagnosis Comments XR SHOULDER 2+ VIEWS RIGHT Routine 08/01/2024 1:28 PM EDT Chronic pain of both shoulders XR SHOULDER 2+ VIEWS LEFT Routine 08/01/2024 1:28 PM EDT Chronic pain of both shoulders documented in this encounter Results * XR Shoulder 2+ Views Right (08/01/2024 1:28 PM EDT) Anatomical Region Laterality Modality Upper Extremities, Shoulder Right Radi ographic Imaging 08/01/2024 1:28 PM EDT Narrative 08/01/2024 2:03 PM EDT ?[facility] ?[address] ?[place] [address] ?XRay Report ? Signed ? Patient: Carlitos,Debbie ?MR#: [id number] ?? 58 ? : 1970 ?Acct:[id number] ? Age/Sex: 54 / F ?ADM Date: 08/01/24 ? Loc: HO.HHCX ? Attending Dr: Taylor Amezquita MD ? Ordering Physician: Taylor Amezquita MD ?? Date of Service: 08/01/24 ?? Procedure(s): XR shoulder RT min 2V ?? Accession Number(s): [id number] ? cc: Taylor Amezquita MD ? EXAMINATION: ?? XR SHOULDER, RIGHT ? CLINICAL INFORMATION: ?? bilateral shoulder pain ? COMPARISON: ?? None available. ? TECHNIQUE: ?? AP external rotation, Grashey, scapular Y, and axillary views of the ?? right shoulder. ? FINDINGS: ?? Normal bone mineralization. No fracture, dislocation, or suspicious ?? bone lesion. Normal alignment. ?? The glenohumeral joint is normal. ?? The AC joint is normal. ?? There is a type III acromion. No undersurface spurring. ?? The subacromial space is preserved. ? There is calcification of the supraspinatus tendon abutting the ?? insertion on the greater tuberosity. ?? Remainder of the soft tissue and bony structures appear normal. ? XR/XR shoulder RT min 2V ?? IMPRESSION: ?? 1. Mild to moderate calcific tendinopathy of the supraspinatus tendon. ?? 2. No acute bony abnormalities. ? Electronically signed by: ??Santiago Livingston MD ??08/01/2024 02:00 PM EDT RP ? Dictated By: ?Santiago Livingston MD ? Signed By: ?<Electronically signed by Santiago Livingston MD in OV> ?08/01/24 1400 ? DD/ 1328 ? TD/TT: 08/01/24 1351 ? Surface Plate Finisher: ? Procedure Note Donotuseinterpreter, Image - 08/01/[address] [address] XRay Report Signed Patient: Debbie UrbinaMR#: [id number] 58 : 1970Acct:[id number] Age/Sex: 54 / FADM Date: 08/01/24 Loc: HO.HHCX Attending Dr: Taylor Amezquita MD Ordering Physician: Taylor Amezquita MD Date of Service: 08/01/24 Procedure(s): XR shoulder RT min 2V Accession Number(s): [id number] cc: Taylor Amezquita MD EXAMINATION: XR SHOULDER, RIGHT CLINICAL INFORMATION: bilateral shoulder pain COMPARISON: None available. TECHNIQUE: AP external rotation, Grashey, scapular Y, and axillary views of the right shoulder. FINDINGS: Normal bone mineralization. No fracture, dislocation, or suspicious bone lesion. Normal alignment. The glenohumeral joint is normal. The AC joint is normal. There is a type III acromion. No undersurface spurring. The subacromial space is preserved. There is calcification of the supraspinatus tendon abutting the insertion on the greater tuberosity. Remainder of the soft tissue and bony structures appear normal. XR/XR shoulder RT min 2V IMPRESSION: 1. Mild to moderate calcific tendinopathy of the supraspinatus tendon. 2. No acute bony abnormalities. Electronically signed by: Santiago Livingston MD 08/01/2024 02:00 PM EDT Dictated By: Santiago Livingston MD Signed By: <Electronically signed by Santiago Livingston MD in OV> 08/01/24 1400 DD/ 1328 TD/TT: 08/01/24 1351 Surface Plate Finisher: us Taylor Amezquita MD IMG XR PROCEDURES Final Re sult * XR Shoulder 2+ Views Left (08/01/2024 1:28 PM EDT) Anatomical Region Laterality Modality Upper Extremities, Shoulder Left Radi ographic Imaging 08/01/2024 1:28 PM EDT Narrative 08/01/2024 2:01 PM EDT ?[facility] ?[address] ?[place] [address] ?XRay Report ? Signed ? Patient: Carlitos,Debbie ?MR#: [id number] ?? 58 ? : 1970 ?Acct:[id number] ? Age/Sex: 54 / F ?ADM Date: 08/01/24 ? Loc: HO.HHCX ? Attending Dr: Taylor Amezquita MD ? Ordering Physician: Taylor Amezquita MD ?? Date of Service: 08/01/24 ?? Procedure(s): XR shoulder LT min 2V ?? Accession Number(s): [id number] ? cc: Taylor Amezquita MD ? EXAMINATION: ?? XR SHOULDER, LEFT ? CLINICAL INFORMATION: ?? bilateral shoulder pain ? COMPARISON: ?? None available. ? TECHNIQUE: ?? AP external rotation, Grashey, scapular Y, and axillary views of the ?? left shoulder. ? FINDINGS: ?? Normal bone mineralization. No fracture, dislocation, or suspicious ?? bone lesion. Normal alignment. ?? The glenohumeral joint is normal. ?? The AC joint is normal. ?? There is a type III acromion. No undersurface spurring. ?? The subacromial space is preserved. ? Remainder of the soft tissue and bony structures appear normal. ? XR/XR shoulder LT min 2V ?? IMPRESSION: ?? Normal left shoulder. ? Electronically signed by: ??Santiago Livingston MD ??08/01/2024 01:58 PM EDT RP ? Dictated By: ?Santiago Livingston MD ? Signed By: ?<Electronically signed by Santiago Livingston MD in OV> ?08/01/24 1358 ? DD/ 1328 ? TD/TT: 08/01/241 ? Surface Plate Finisher: ? Procedure Note Donotuseinterpreter, Image - 08/01/[address] [address] XRay Report Signed Patient: Debbie UrbinaMR#: [id number] 58 : 1970Acct:[id number] Age/Sex: 54 / FADM Date: 08/01/24 Loc: HO.HHCX Attending Dr: Taylor Amezquita MD Ordering Physician: Taylor Amezquita MD Date of Service: 08/01/24 Procedure(s): XR shoulder LT min 2V Accession Number(s): [id number] cc: Taylor Amezquita MD EXAMINATION: XR SHOULDER, LEFT CLINICAL INFORMATION: bilateral shoulder pain COMPARISON: None available. TECHNIQUE: AP external rotation, Grashey, scapular Y, and axillary views of the left shoulder. FINDINGS: Normal bone mineralization. No fracture, dislocation, or suspicious bone lesion. Normal alignment. The glenohumeral joint is normal. The AC joint is normal. There is a type III acromion. No undersurface spurring. The subacromial space is preserved. Remainder of the soft tissue and bony structures appear normal. XR/XR shoulder LT min 2V IMPRESSION: Normal left shoulder. Electronically signed by: Santiago Livingston MD 08/01/2024 01:58 PM EDT Dictated By: Santiago Livingston MD Signed By: <Electronically signed by Santiago Livingston MD in OV> 08/01/24 1358 DD/ 1328 TD/TT: 08/01/24 1351 Surface Plate Finisher: Taylor Amezquita MD IMG XR PROCEDURES Final Re sult documented in this encounter Visit Diagnoses Diagnosis Chest wall discomfort- Primary Chronic pain of both shoulders Carpal tunnel syndrome of left wrist documented in this encounter Additional Health Concerns Assessment Noted Time PHQ-9 Depression Total Score: 6 05/24/19 23 11:43 AM EST documented as of this encounter Care Teams Barrel Inspector Relationship Specialty Start Date End Date Bonnie Gay MD [address] [place] [address] PCP - General Internal Medicine 04/17/15 documented as of this encounter
--- OUTSIDE RECORDS SUMMARY | 2024-08-01 16:45 | XMS_ITS | Encounter Summary ---
Author Organization [employer] Address [address] [place] [address] [place] [address] Care Team Providers Care Skiver Hand Name Role Phone Bonnie Gay MD Primary Care Provider [phone]- [phone] Reason for Visit * Reason Onset Date Comments Nurse Triage 07/30/2024 Encounter Details Date Type Department Care Team ([facility] st Contact Info) Description 07/30/2024 Telephone [facility] CHC MED & PEDS [address] [place] [address] Bonnie Gay MD [address] [place] [address] Nurse Triage Social History Tobacco Use Types [...] encounter Miscellaneous Notes * Telephone Encounter - Trudy Patterson RN - 07/30/2024 11:15 AM EDT Called pt. She has a big lump in between breasts. Lump is under skin and flesh color. Lump is sore when she touches it and also when she does not touch it. Pt. States she has had lump x a few months but, yesterday it seemed bigger. Size of lump when she lays on back is the size of 3 grapes grouped together. No trouble breathing. No fever. No nausea or vomiting. Protocol Used: Skin Lump or Localized Swelling (Adult) Protocol-Based Disposition: See in Office or Video Visit Today Pt. Will go to [facility] walk in this afternoon. Video visit offer not recorded Positive Triage Questions: * Swelling is painful to touch and no fever * Small swelling or lump present > 1 week * All higher-acuity triage questions were negative * Telephone Encounter - Estefany Pandey - 07/30/2024 11:00 AM EDT Symptom: Skin Lump Outcome: Schedule an appointment to be seen within 3 days Reason: Caller denied all higher acuity questions The caller accepted this outcome. documented in this encounter Plan of Treatment Upcoming Encounters Date Type Department Care Team (Late st Contact Info) Description 09/16/2024 9:00 AM EDT Office Visit [facility] MED & PEDS [address] [place] [address] Tucker Moore MD [address] [place] [address] documented as of this encounter Goals Goal [...] documented as of this encounter Care Teams Skiver Hand Relationship Specialty Start Date End Date Bonnie Gay MD [address] [place] [address] PCP - General Internal Medicine 04/17/15 documented as of this encounter
--- OUTSIDE RECORDS SUMMARY | 2024-08-01 16:45 | XMS_ITS | Encounter Summary ---
Author Organization [employer] Address [address] [facility] 7t [place] [address] Care Team Providers Care Ancient Art Curator Name Role Phone Bonnie Gay MD Primary Care Provider [phone] Reason for Visit * Reason Comments TELEVISIT Encounter Details Date Type Department Care Team ([facility] st Contact Info) Description 07/22/2024 9:00 AM EDT Telemedicine [facility]S [address] [place], [place] [phone] Leslee Torres, CHIRAG Opioid type dependence, continuous (CMS/[facility]) Social History Tobacco Use Types Packs/Day Years [...] as of this encounter Progress Notes * Leslee Torres RN - 07/22/2024 9:00 AM EDT Patient here today for Opioid Dependence RV. Patient on current Suboxone dose of 20/5 mg on a 8-week schedule. Patient reports taking medication as prescribed, no adverse effects. Pt has been in the program for 9 years. Induction date: 06/02/15. Patient connected with integrated integrated therapist. No longer seeing Clemente Morin for psych. [place] [employer] reviewed by provider. COVID vaccinated. Last PCP Appt: 09/14/23 LFTs done 05/03/2024 T-spot - Negative 08/06/18 Hep A and Hep B - Immune Hep C: HCV RNA VL undetectable (09/27/21) LAST OBAT VISIT 2024 UTOX: POS BUP, THC [...] and agreement with continuing plan of care THIS OBOT VISIT: 07/22/2024 TELEPHONE VISIT -- NO UTOX Jo-Ann said that her grandson came to visit last night, and then they found out he has Covid. She also started feeling respiratory issues (congestion, cough), and thought it better not to come in. She was told to be mindful of her symptoms, and if it worsened, particularly SOB, she should seek help. As for her buprenorphine, Jo-Ann reports that the dose is working well and she has no sfx, including constipation. She had no medical questions and denies any relapse. Endorses good mood. She was very anxious about missing this appointment, and was assured that since her attendance record is good, it was fine. Follow up in 9 weeks This information [...] Description 09/16/2024 9:00 AM EDT Office Visit [facility]ED[facility] [address] [place], [place] [phone] Tucker Moore MD [address] [place], [place] [phone] documented as of this encounter Goals Goal Patient Goal Type Associated Problems Recent Progress Patient-Stated? Author Take extra good care of health during Covid infection. General Yes Leslee Torres, CHIRAG documented as of this encounter Visit Diagnoses Diagnosis Opioid type dependence, continuous (CMS/[facility]) Opioid type dependence, continuous documented in this encounter Additional Health Concerns Assessment Noted Time PHQ-9 Depression Total Score: 6 05/24/19 23 11:43 AM EST documented as of this encounter Care Teams Ancient Art Curator Relationship Specialty Start Date End Date Bonnie Gay MD [address] [place], [place] [phone] PCP - General Internal Medicine 04/17/15 documented as of this encounter
--- OUTSIDE RECORDS SUMMARY | 2024-08-01 16:45 | XMS_ITS | Encounter Summary ---
Author Organization [employer] Address [address] [facility] 7t [place] [address] Care Team Providers Care Vegetable Farming Supervisor Name Role Phone Bonnie Gay MD Primary Care Provider [phone]- [phone] Encounter Details Date Type Department Care Team (Latest Contact Info) Description 07/22/2024 Travel Social History Tobacco Use Types Packs/Day [...] Description 09/16/2024 9:00 AM EDT Office Visit [facility] MED & PEDS [address] [place] [address] Tucker Moore MD [address] [place] [address] documented as of this encounter Goals Goal Patient Goal Type Associated Problems Recent Progress Patient-Stated? Author Take extra good care of health during Covid infection. General Yes Brian, Leslee, RN documented as of this encounter Visit Diagnoses Not on filedocumented in this encounter Additional Health Concerns Assessment Noted Time PHQ-9 Depression Total Score: 6 05/24/19 23 11:43 AM EST documented as of this encounter Care Teams Vegetable Farming Supervisor Relationship Specialty Start Date End Date Bonnie Gay MD [address] [place] [phone] PCP - General Internal Medicine 04/17/15 documented as of this encounter
--- OUTSIDE RECORDS SUMMARY | 2024-08-01 16:45 | XMS_ITS | Encounter Summary ---
Author Organization [employer] [facility] Address [address] [facility] 7t [place] [address] Care Team Providers Care Radio Adjuster Name Role Phone Bonnie Gay MD Primary Care Provider [phone]- [phone] Encounter Details Date Type Department Care Team (Late Contact Info) Description 07/19/2024 Population Health Risk Score [facility] () Department [address] [phone] Provider, Population Health Generic Social History Tobacco Use Types Packs/Day Years [...] Description 09/16/2024 9:00 AM EDT Office Visit [facility] MED & PEDS 505 [place] [address] Tucker Moore MD [address] [place] [address] documented as of this encounter Visit Diagnoses Not on filedocumented in this encounter Additional Health Concerns Assessment Noted Time PHQ-9 Depression Total Score: 6 05/24/19 23 11:43 AM EST documented as of this encounter Care Teams Radio Adjuster Relationship Specialty Start Date End Date Bonnie Gay MD [address] [place] [phone] PCP - General Internal Medicine 04/17/15 documented as of this encounter
--- OUTSIDE RECORDS SUMMARY | 2024-08-01 16:45 | XMS_ITS | Encounter Summary ---
Author Organization [employer] Address [address] [place] [address] 7 [place] [address] Care Team Providers Care Hydro Operator Name Role Phone Bonnie Gay MD Primary Care Provider [phone]- [phone] Encounter Details Date Type Department Care Team ([facility] Contact Info) Description 09/26/2023 Orders Only [facility] MED & PEDS [address] [place], [place] [phone] Bonnie Gay MD 505 [place] [address] Social History Tobacco Use Types Packs/Day Years [...] Description 09/16/2024 9:00 AM EDT Office Visit [facility] MED & PEDS 505 [place], [place] [phone] Tucker Moore MD [address] [place] [address] documented as of this encounter Visit Diagnoses Not on filedocumented in this encounter Additional Health Concerns Assessment Noted Time PHQ-9 Depression Total Score: 6 05/24/19 23 11:43 AM EST documented as of this encounter Care Teams Hydro Operator Relationship Specialty Start Date End Date Bonnie Gay MD [address] [place] [phone] PCP - General Internal Medicine 04/17/15 documented as of this encounter
--- OUTSIDE RECORDS SUMMARY | 2024-08-01 16:46 | XMS_ITS | Encounter Summary ---
Author Organization [employer] Address [address] [place] [address] 7 [place] [address] Care Team Providers Care Memory Care Director Name Role Phone Bonnie Gay MD Primary Care Provider [phone]- [phone] Reason for Visit * Reason Comments Med Refill Encounter Details Date Type Department Care Team ([facility] Contact Info) Description 06/19/2023 Refill [facility] DIABETES/NUTRITION [address] [place], [place] [phone] Bonnie Gay MD 505 [place], [place] [phone] Primary insomnia; Insomnia, unspecified Social History Tobacco [...] Upcoming Encounters Date Type Department Care Team ([facility] Contact Info) Description 09/16/2024 9:00 AM EDT Office Visit [facility] CHC MED & PEDS 505 [place] [address] Tucker Moore MD [address] [place] [address] documented as of this encounter Visit Diagnoses Diagnosis Primary insomnia Persistent disorder of initiating or maintaining sleep Insomnia, unspecified documented in this encounter Additional Health Concerns Assessment Noted Time PHQ-9 Depression Total Score: 6 05/24/19 23 11:43 AM EST documented as of this encounter Care Teams Memory Care Director Relationship Specialty Start Date End Date Bonnie Gay MD [address] [place] [phone] PCP - General Internal Medicine 04/17/15 documented as of this encounter
--- OUTSIDE RECORDS SUMMARY | 2024-08-01 16:46 | XMS_ITS | Clinical Summary ---
Author Organization [employer] Address [address] [place] [address] 7t [place] [address] Care Team Providers Care Door Closer Name Role Phone Bonnie Gay MD Primary Care Provider +1- [phone] Allergies Active Allergy Reactions Criticality Noted Date [...] hyperglycemia, with long-term current use of insulin ([facility]) TEST BLOOD SUGAR FIVE TIMES DAILY 200 [...] hyperglycemia, with long-term current use of insulin ([facility]) INJECT ONE PEN (=0.75MG) SUBCUTANEOUSLY ONCE A WEEK DIRECTED 2 mL 3 023 Active Continuous Blood Gluc Cdl B Driver (FreeStyle Jeffy 2 [place]) deviceIndication s:Type 2 diabetes mellitus with hyperglycemia, with long-term current use of insulin ([facility]) To check the blood sugar daily 1 [...] hyperglycemia, with long-term current use of insulin ([facility]) 8 units before evening meals 3 mL [...] hyperglycemia, with long-term current use of insulin ([facility]) USE DIRECTED AND CHANGE EVERY 14 DAYS 2 each 11 024 Active traZODone (Desyrel) 100 MG tabletIndication s:Primary insomnia TAKE ONE TABLET BY MOUTH AT BEDTIME 30 tablet 2 Active QUEtiapine (SEROquel) 50 MG tabletIndication s:Insomnia, unspecified TAKE ONE TABLET BY MOUTH EVERY MORNING AND TAKE TWO TABLETS AT BEDTIME 90 tablet 2 025 Active Buprenorphine HCl-Naloxone HCl (Suboxone) 8-2 MG SL filmIndications: Opioid dependence, uncomplicated (CMS/HCC) Place 2 Film under the tongue Once per day. Do not start before July 22, 2024. 56 Film 1 025 2024 Active buprenorphine-na loxone (Suboxone) 4-1 MG per sublingual filmIndications: Opioid dependence, uncomplicated (CMS/HCC) Place 1 Film under the tongue Once per day. Do not start before July 22, 2024. 28 Film 1 025 2024 Active buprenorphine-na loxone (Suboxone) 4-1 MG per sublingual filmIndications: Opioid dependence, uncomplicated (CMS/HCC) Place 1 Film under the tongue Once per day. Do not start before May 24, 2024. 28 Film 1 025 2024 Discontinued(R eorder (will not trigger notification to Pharmacy)) Buprenorphine HCl-Naloxone HCl (Suboxone) 8-2 MG SL filmIndications: Opioid dependence, uncomplicated (CMS/HCC) Place 2 Film under the tongue Once per day. Do not start before May 24, 2024. 56 Film 1 025 2024 Discontinued(R eorder (will not trigger notification to Pharmacy)) Active Problems Problem Noted Date Diagnosed Date Chest wall discomfort 08/01/2024 Assessment & Plan (08/01/2024 1:07 PM EDT): Reported protrusion of mid chest, on exam appreciated normal Xiphoid process. Reassured pt and encouraged not to palpate as this may cause discomfort/pain. Chronic pain of both shoulders 08/01/2024 Assessment & Plan (08/01/2024 1:07 PM EDT): Exam benign. -ordered bilateral XR's 08/01/24. -referred to PT 08/01/24. Cough 05/25/2022 Chronic anxiety 07/01/2021 Heavy cigarette smoker 03/26/2021 Asthma 12/09/2020 Diabetes mellitus 05/08/2014 Carpal tunnel syndrome 05/18/2012 Assessment & Plan (08/01/2024 1:07 PM EDT): Pain to left wrist. -referred to PT 08/01/24 Chronic hepatitis C 05/18/1999 Opioid abuse 05/18/1999 Encounters Date Type Department Care Team Description 08/01/2024 2:00 PM EDT Office Visit [facility] [address] [place] [address] Taylor Amezquita MD Chest wall discomfort (Primary Dx); Chronic pain of both shoulders; Carpal tunnel syndrome of left wrist 07/30/2024 Telephone [facility] MED & PEDS [address] [place] [address] Bonnie Gay MD Nurse Triage 07/22/2024 9:00 AM EDT Telemedicine [facility] MED & PEDS [address] [place] [address] Leslee Torres RN Opioid type dependence, continuous (CMS/HCC) 07/22/2024 Travel 07/19/2024 Population Health Risk Score [facility] () Department [address] [phone] Provider, Population Health Generic 07/15/[address] [facility] [address] [place] [address] Leslee Torres RN Opioid dependence, uncomplicated (CMS/HCC) 07/15/[address] [facility] [address] [place] [address] Leslee Torres, RN Opioid dependence, uncomplicated (CMS/HCC) 07/08/[address] [facility] [address] [place] [address] Leslee Torres RN Error (VOID this visit) 06/06/2024 Orders Only [facility] External Provider, [facility] 2024 9:00 AM EST Office Visit [facility] MED & PEDS [address] [place] [address] Tucker Moore MD Opioid type dependence, continuous (CMS/HCC) (Primary Dx) 2024 Travel 05/17/[address] [facility] & PEDS [address] [place] [address] Bonnie Gay MD Primary insomnia; Insomnia, unspecified 05/14/[address] [facility] [address] [place] [address] Leslee Torres RN Opioid dependence, uncomplicated (CMS/HCC) from Last 3 [...] 17 08/01/2024 12:54 PM EDT Oxygen Saturation 96% 09/14/2023 4:12 PM EDT Inhaled Oxygen Concentration - - Weight 76.9 kg (169 lb 9.6 oz) 08/01/2024 12:54 PM EDT Height 156 cm (5' 1.42 ) 08/01/2024 12:54 PM EDT Body Mass Index 31.61 08/01/2024 12:54 PM EDT Plan of Treatment Upcoming Encounters Date Type Department Care Team (Late st Contact Info) Description 09/16/2024 9:00 AM EDT Office Visit [facility] MED & PEDS [address] [place] [address] Tucker Moore MD [address] [place], [place] [phone] Health Maintenance Due Date Last Done Comments [...] 3-dose series) 08/20/2003 06/25/2003, 09/13/2001 Mammogram 2011 Lung Cancer Screening 2021 Zoster Vaccines (1 of 2) 2021 Diabetes: Urine Protein Screening 09/27/2022 09/27/2021, 03/03/2020 Lipid Panel 09/27/2022 09/27/2021, 03/03/2020 Depression Screening 05/24/2023 05/24/2022, 05/24/2022 Diabetes: Hemoglobin A1C 07/12/2023 023, 03/08/2023, 09/19/2022 COVID-19 Vaccine (3 - 2023-2 5 season) 2024 10/15/2020, 09/17/2020 Influenza Vaccine (#1) 2024 2, 01/26/2009 DTaP/Tdap/Td Vaccines (3 - T d or Tdap) 04/17/2025 04/17/2015, 03/27/2012, 09/13/2001 Tobacco Screening 08/01/2025 08/01/2024 RSV Patients and Patients Aged 60 years [...] on patient's age to complete this topic Goals Goal Patient Goal Type Associated Problems Recent Progress Patient-Stated? Author Take extra good care of health during Covid infection. General Yes Leslee Torres RN Procedures Procedure Name Priority Date/Time Associated Diagnosis Comments XR SHOULDER 2+ VIEWS RIGHT Routine 08/01/2024 1:28 PM EDT Chronic pain of both shoulders XR SHOULDER 2+ VIEWS LEFT Routine 08/01/2024 1:28 PM EDT Chronic pain of both shoulders CT HEAD WO CONTRAST Routine 06/06/2024 1 :00 PM EST POCT KAYLA-14 URINE DRUG SCREEN Routine 2024 9:08 AM EST Opioid type dependence, continuous (CMS/HCC) HEMOGLOBIN A1C Routine 04/12/2023 10:32 AM EST Type 2 diabetes mellitus with hyperglycemia, with long-term current use of insulin (CMS/[facility]) ALBUMIN, RANDOM URINE W/CREATININE Routine 09/27/2021 10:10 AM EDT HIV 1/2 ANTIGEN/ANTIBODY, FOURTH GENERATION W/RFL Routine 09/27/2021 9:50 AM EDT LIPID PANEL, STANDARD Routine 09/27/2021 9:49 AM EDT from Last 3 Months or Most Recently Relevant to Health Maintenance Results * XR Shoulder 2+ Views Right (08/01/2024 1:28 PM EDT) Anatomical Region Laterality Modality Upper Extremities, Shoulder Right Radi ographic Imaging 08/01/2024 1:28 PM EDT Narrative 08/01/2024 2:03 PM EDT ?[facility] ?[address] ?[place] [address] ?XRay Report ? Signed ? Patient: Carlitos,Debbie ?MR#: [id number] ?? 58 ? : 1970 ?Acct:[id number] ? Age/Sex: 54 / F ?ADM Date: 08/01/24 ? Loc: HO.HHCX ? Attending Dr: Taylor Amezquita MD ? Ordering Physician: Taylor Amezquita MD ?? Date of Service: 08/01/24 ?? Procedure(s): XR shoulder RT min 2V ?? Accession Number(s): [id number] ? cc: Taylor Amezquita MD ? EXAMINATION: [...] DD/ 1328 ? TD/TT: 08/01/24 1351 ? Qualitative Executive Researcher: ? Procedure Note Donotuseinterpreter, Image - 08/01/[address] [address] XRay Report Signed Patient: Debbie UrbinaMR#: [id number] 58 : 1970Acct:[id number] Age/Sex: 54 / FADM Date: 08/01/24 Loc: HO.HHCX Attending Dr: Taylor Amezquita MD Ordering Physician: Taylor Amezquita MD Date of Service: 08/01/24 Procedure(s): XR shoulder RT min 2V Accession Number(s): [id number] cc: Taylor Amezquita MD EXAMINATION: XR SHOULDER, [...] 08/01/24 1400 DD/ 1328 TD/TT: 08/01/24 1351 Qualitative Executive Researcher: Taylor Amezquita MD IMG XR PROCEDURES Final Re sult * XR Shoulder 2+ Views Left (08/01/2024 1:28 PM EDT) Anatomical Region Laterality Modality Upper Extremities, Shoulder Left Radi ographic Imaging 08/01/2024 1:28 PM EDT Narrative 08/01/2024 2:01 PM EDT ?[facility] ?[address] ?[place] [address] ?XRay Report ? Signed ? Patient: Carlitos,Debbie ?MR#: [id number] ?? 58 ? : 1970 ?Acct:[id number] ? Age/Sex: 54 / F ?ADM Date: 08/01/24 ? Loc: HO.HHCX ? Attending Dr: Taylor Amezquita MD ? Ordering Physician: Taylor Amezquita MD ?? Date of Service: 08/01/24 ?? Procedure(s): XR shoulder LT min 2V ?? Accession Number(s): [id number] ? cc: Taylor Amezquita MD ? EXAMINATION: [...] ?08/01/24 1358 ? DD/ 1328 ? TD/TT: 08/01/24 1351 ? Qualitative Executive Researcher: ? Procedure Note Rip Abdullahi - 08/01/2024 [facility] [address] [facility] [place] [address] XRay Report Signed Patient: Marcia UrbinaAgata#: [id number] 58 : 1970Acct:[id number] Age/Sex: 54 / FADM Date: 08/01/24 Loc: HO.HHCX Attending Dr: Taylor Amezquita MD Ordering Physician: Taylor Amezquita MD Date of Service: 08/01/24 Procedure(s): XR shoulder LT min 2V Accession Number(s): [id number] cc: Taylor Amezquita MD EXAMINATION: XR SHOULDER, [...] Livingston MD Signed By: <Electronically signed by Santiaog Livingston MD in OV> 08/01/24 1358 DD/ 1328 TD/TT: 08/01/24 1351 Qualitative Executive Researcher: Taylor Amezquita MD IMG XR PROCEDURES Final Re sult * CT Head w/o Contrast (06/06/2024 1:00 PM EST) Anatomical Region Laterality Modality Head, Neck Computed Tomogra phy 06/06/2024 1:00 PM EST Narrative 06/06/2024 1:30 PM EST ? [facility] ?[address] ?[place] [address] ? CT Scan Report ? Signed ? Patient: Carlitos,Debbie ?MR#: [id number] ?? 58 ? : 1970 ?Acct:[id number] ? Age/Sex: 54 / F ?ADM Date: 01/30/25 ? Loc: HO.CT ? Attending Dr: Julio Rodriguez MD ? Ordering Physician: Julio Rodriguez MD ?? Date of Service: 06/06/24 ?? Procedure(s): CT head/brain wo IV con ?? Accession Number(s): [id number] ? cc: Bonnie Gay MD; Julio Rodriguez MD ? Report Number: ?? [id number]: Total DLP = ??777.00 mGy-cm ?? EXAMINATION: [...] signed by Kael Carvajal MD in OV> ?06/06/ 1327 ? DD/DT: 06/06/ 1300 ? TD/TT: 06/06/ 1320 ? Qualitative Executive Researcher: ? Procedure Note Donotuseinterpreter, Image - 06/06/2024 [place] [address] [place] [address] CT Scan Report Signed Patient: Debbie UrbinaMR#: [id number] 58 : 1970Acct:[id number] Age/Sex: 54 / FADM Date: 06/06/24 Loc: HO.CT Attending Dr: Julio Rodriguez MD Ordering Physician: Julio Rodriguez MD Date of Service: 06/06/24 Procedure(s): CT head/brain wo IV con Accession Number(s): [id number] cc: Bonnie Gay MD; Julio Rodriguez MD Report Number: [id number]: Total DLP = 777.00 mGy-cm EXAMINATION: CT [...] by: Kael Carvajal MD 06/06/2024 01:27 PM EST RP Dictated By: Kael Carvajal MD Signed By: <Electronically signed by Kael Carvajal MD in OV> 06/06/24 1327 DD/ 1300 TD/TT: 06/06/24 1320 Qualitative Executive Researcher: [facility] External Provider IMG CT PROCEDURES Final [...] ENTER/EDIT OR DERABLES Final Result * (ABNORMAL) Hemoglobin A1c (04/12/2023 10:32 AM EST) Hemoglobin A1c 11.8(H) <6.0 % [facility] Comment:Hemoglobin A1C Refer ence Range Adults: 4.8 - 6.0 % Non diabetic: < 6.0 % Goal: < 7.0 %Additional Action Suggested: > 8.0 %Note: Hemoglobin A1c results are invalid for patients with abnormal amounts of HbF. Blood transfusions may impact the HbA1c concentration in the patient sample. Estimated Average Glucose 292 mg/dL [facility] Comment:eAG = Estimated ave rage glucose which is %A1C expressed asaverage glucose, using the formula of the H8Q-EriwqrgPlzvjfp Glucose study (ADAG), Diabetes Care, Vol.31,#8,2007 Blood Venous blood specimen / Unknown 04/12/2023 10:32 AM EST 04/12/2023 2:04 PM EST us Bonnie Gay MD LAB BLOOD ORDERABLES Final Result Performing Organization Address [facility]/ZIP Co de Phone Number [facility] [address] [place] [address] [phone] * ALBUMIN, RANDOM URINE W/CREATININE (09/27/2021 [...] Creatinine, Urine 190 20 - 275 mg/dL [facility] 09/27/2021 10:1 0 AM EDT us Bonnie Gay MD LAB URINE ORDERABLES Final Result Performing Organization Address [facility]/ZIP Co de Phone Number [facility] [address] * HIV 1/2 ANTIGEN/ANTIBODY,FOURTH GENERATION W/RFL (09/27/2021 9:50 AM EDT) HIV-1/2 ANTIGEN AND ANTIBODIES, 4TH GENERATION W/ REFLEX NON-REACT SLOAN NON-REACT SLOAN [facility] Comment: HIV-1 antigen and HIV-1/HIV-2 [...] ? For additional information please refer to http://[employer].GIGAS/faq/EFH180 (This link is being provided for informational/ educational purposes only.) ? The performance of this assay has not been clinically validated in patients less than 2 years old. ?? 09/27/2021 9:50 AM EDT us Tucker Moore MD LAB BLOOD ORDERABLES Final Resul t [facility] [address] * (ABNORMAL) LIPID PANEL, STANDARD (09/27/2021 9:49 AM EDT) Chol/HDLC Ratio 3.9 <5.0 (calc) [facility] Cholesterol, Total 152 <200 mg/dL [facility] HDL Cholesterol 39(L) > OR = 50 mg/dL [facility] LDL Cholesterol 93 mg/dL (calc) [facility] Comment: Reference range: <100 ?? [...] ?? Bertrand SINGER et al. HAILEY. 2013;310(19): 7664-4786 ?? (http://education.[employer].eBillme/faq/ANL259) Non-HDL Cholesterol 113 <130 mg/dL (calc) [facility] Comment: For patients with diabetes plus 1 major ASCVD risk ?? factor, treating to a non-HDL-C goal of <100 mg/dL ?? (LDL-C of <70 mg/dL) is considered a therapeutic ?? option. Triglycerides 107 <150 mg/dL [facility] 09/27/2021 9:49 AM EDT Bonnie Gay MD LAB BLOOD ORDERABLES Final Result [facility] [address] from Last 3 Months or Most Recently Relevant to Health Maintenance Insurance [employer] Care Teams Door Closer Relationship Specialty Start Date End Date Bonnie Gay MD [address] [place] [address] PCP - General Internal Medicine 04/17/15
--- OUTSIDE RECORDS SUMMARY | 2024-08-01 16:46 | XMS_ITS | Clinical Summary ---
Author Organization [facility] Address [address] [place] [address] Phone Care Team Providers Care Business Investor Name Role Phone Physician, No Pcp Primary Care Provider Unavaila ble Allergies Active Allergy Reactions Criticality Noted Date Comments Iodinated Contrast Media Nausea And Vomiting Medium Medications No known medications Encounters Date Type Department Care Team Description 05/03/2024 10:23 AM EST - 05/03/2024 2:25 PM EST Emergency Emergency [address] [place] [address] Jefry Berumen MD Nausea and [...] drink = 0.6 oz pur e alcohol) Comments Unknown Sex and Gender Information Value Date Recorded Sex Assigned at Female 05/03/2024 11:44 AM EST Legal Sex Female 11:46 PM EST Gender Identity Female 05/03/2024 11:44 AM EST Sexual Orientation Straight 05/03/2024 11 :44 AM EST Obstetrics History Last Filed Vital Signs Vital [...] Last Done Comments Breast Cancer Screening 1971 Diabetes: Annual Foot Exam 1981 Diabetes: Annual Retina Eye Exam 1981 Pneumococcal Vaccine: 50+ Years (1 of 2 - PCV) 1990 Pneumococcal Vaccine: Pediatrics (0 to 5 Years) and At-Risk Patients (6 to 64 Years) (1 of 2 - PCV) 1990 Cervical Cancer Screening: P ap Smear 1992 [...] 04/10/2022 Depression Screening 05/24/2023 05/24/2022 COVID-19 Vaccine (3 - 2023-2 5 season) [...] patient's age to complete this topic Meningococcal B Vacine Aged Out No lo nger eligible based on patient's age to complete [...] LAB CHEMISTRY METHOD 05/03/2024 1:26 PM EST [facility] Blood Venous blood specimen / Unknown Venipuncture / Unknown 05/03/2024 12:56 PM EST 05/03/2024 1:03 PM EST Narrative [facility] - 05/03/2024 1:26 PM EST High levels of biotin in samples may falsely decrease hsTroponin values. ??Use caution when interpreting hsTroponin results in patients taking biotin who exhibit renal impairment (eGFR <60) or in patients taking more than 20 mg/day of biotin. Jefry Berumen MD LAB BLOOD ORDERABLES Final Resu lt [facility] [address] [place] [address], * CT Abdomen Pelvis wo Contrast (05/03/2024 [...] Signed Date: 05/03/2024 12:17 ET Workstation ID: [id number] Transcribed By: Self Edit Transcribed Date: 05/03/2024 [...] Signed Date: 05/03/2024 12:17 ET Workstation ID: [id number] Transcribed By: Self Edit Transcribed Date: 05/03/2024 12:12 ET [facility] Rodo Berumen MD IMG CT PROCEDURES Final Result * ECG 12 lead (05/03/2024 10:49 AM EST) Ventricular Rate ECG 67 BPM GEMUSE Atrial Rate 67 BPM GEMUSE P-R Interval 168 ms GEMUSE QRS Duration 90 ms GEMUSE Q-T Interval 442 ms GEMUSE QTc 467 ms GEMUSE P Wave [place] 51 degrees GEMUSE R [place] 12 degrees GEMUSE T [place] 40 degrees GEMUSE ECG Interpretation Normal sinus rhythm Normal ECG When compared with ECG of 30-NOV-2023 22:04, Sinus rhythm has replaced Electronic ventricular pacemaker Confirmed by Cynthia SHEEHAN JOHN ([id number]) on 05/04/2024 6:38:22 AM GEMUSE 05/03/2024 10:4 9 AM EST 05/04/2024 6:38 AM EST Jefry Berumen MD ECG ORDERABLES Final Result GEMUSE * (ABNORMAL) POCT Glucose, blood (05/03/2024 10:45 AM EST) Glucose POCT 288(H) 70 - 100 mg/dL 05/03/2024 10:46 AM EST [facility] Blood Capillary blood specimen / Unknown 05/03/2024 10:45 AM EST 05/03/2024 10:47 AM EST Jefry Berumen MD LAB POINT OF CARE TE ST DOCKED DEVICE UNSOLICITED RESULTS Final Result Performing Organization Address [facility]/ZIP Co de Phone Number [facility] [address] [place] [address], [place] [phone] * (ABNORMAL) Beta hydroxybutyrate (05/03/2024 10:36 AM EST) Beta-Hydroxybu tyrate 4.6(H) 0.2 - 2.8 mg/dL LAB CHEMISTRY METHOD 05/03/2024 11:56 AM EST [facility] Blood Venous blood specimen / Unknown Venipuncture / Unknown 05/03/2024 10:36 AM EST 05/03/2024 11:27 AM EST Jefrydanuta Berumen MD LAB BLOOD ORDERABLES Final Resu lt Performing Organization Address City/[facility]/ZIP Co de Phone Number [facility] [address] [place] [address], [place] [phone] * (ABNORMAL) CBC auto differential (05/03/2024 10:36 AM EST) WBC 13.7(H) 4.8 - 10.8 K/mcL LAB HEMETOLOGY METHOD 05/03/2024 11:32 AM EST [facility] RBC 5.30(H) 3.80 - 4.80 M/mcL LAB HEMETOLOGY METHOD 05/03/2024 11:32 AM EST [facility] Hemoglobin 15.7 11.5 - 16.0 g/dL LAB HEMETOLOGY METHOD 05/03/2024 11:32 AM EST [facility] Hematocrit 46.7 35.0 - 47.0 % LAB HEMETOLOGY METHOD 05/03/2024 11:32 AM [facility] MCV 87.9 79.0 - 98.0 FL LAB HEMETOLOGY METHOD 05/03/2024 11:32 AM [facility] MCH 29.6 27.0 - 32.0 pcg LAB HEMETOLOGY METHOD 05/03/2024 11:32 AM [facility] MCHC 33.6 32.0 - 37.0 g/dL LAB HEMETOLOGY METHOD 05/03/2024 11:32 AM [facility] RDW 13.0 11.0 - 15.0 % LAB HEMETOLOGY METHOD 05/03/2024 11:32 AM [facility] Platelets 428(H) 130 - 400 K/mcL LAB HEMETOLOGY METHOD 05/03/2024 11:32 AM [facility] MPV 9.9 7.0 - 11.0 FL LAB HEMETOLOGY METHOD 05/03/2024 11:32 AM [facility] NRBC 0.0 <1.0 % LAB HEMETOLOGY METHOD 05/03/2024 11:32 AM [facility] NRBC Absolute 0.00 <0.10 K/mcL LAB HEMETOLOGY METHOD 05/03/2024 11:32 AM [facility] Neutrophils Relative 76.2 % LAB HEMETOLOGY METHOD 05/03/2024 11:32 AM [facility] Lymphocytes Relative 17.2 % LAB HEMETOLOGY METHOD 05/03/2024 11:32 AM [facility] Monocytes Relative 5.7 % LAB HEMETOLOGY METHOD 05/03/2024 11:32 AM [facility] Eosinophils Relative 0.3 % LAB HEMETOLOGY METHOD 05/03/2024 11:32 AM [facility] Basophils Relative 0.4 % LAB HEMETOLOGY METHOD 05/03/2024 11:32 AM EST [facility] Immature Granulocytes Relative 0.2 % LAB HEMETOLOGY METHOD 05/03/2024 11:32 AM EST [facility] Neutrophils Absolute 10.40(H) 1.50 - 7.00 K/mcL LAB HEMETOLOGY METHOD 05/03/2024 11:32 AM EST [facility] Lymphocytes Absolute 2.35 1.00 - 5.00 K/mcL LAB HEMETOLOGY METHOD 05/03/2024 11:32 AM EST [facility] Monocytes Absolute 0.78 0.20 - 1.00 K/mcL LAB HEMETOLOGY METHOD 05/03/2024 11:32 AM EST [facility] Eosinophils Absolute 0.04 0.00 - 0.50 K/mcL LAB HEMETOLOGY METHOD 05/03/2024 11:32 AM EST [facility] Basophils Absolute 0.05 0.00 - 0.20 K/mcL LAB HEMETOLOGY METHOD 05/03/2024 11:32 AM [facility] Immature Granulocytes Absolute 0.03 0.00 - 0.03 K/mcL LAB HEMETOLOGY METHOD 05/03/2024 11:32 AM EST [facility] Blood Venous blood specimen / Unknown Venipuncture / Unknown 05/03/2024 10:36 AM EST 05/03/2024 11:27 AM EST Jefry Rodo Berumen MD LAB BLOOD ORDERABLES Final Resu lt [facility] [address] [place] [address], * hCG, serum, qualitative (05/03/2024 10:36 AM EST) hCG Qual Negative Negative 05/03/2024 12:34 PM EST [facility] Blood Venous blood specimen / Unknown Venipuncture / Unknown 05/03/2024 10:36 AM EST 05/03/2024 11:27 AM EST Jefry Berumen MD LAB BLOOD ORDERABLES Final Resu lt Performing Organization Address [facility]/ZIP Co de Phone Number [facility] [address] [place] [address], [place] [phone] * Lipase (05/03/2024 10:36 AM EST) [facility] Lipase 19 13 - 75 unit/L LAB CHEMISTRY METHOD 05/03/2024 11:56 AM [facility] Blood Venous blood specimen / Unknown Venipuncture / Unknown 05/03/2024 10:36 AM EST 05/03/2024 11:27 AM EST [facility] BLOOD ORDERABLES Final Resu lt Performing Organization Address [facility]/ZIP Co de Phone Number [facility] [address] [place] [address], [place] [phone] * (ABNORMAL) Comprehensive metabolic panel (05/03/2024 10:36 AM EST) [facility] Sodium 135 133 - 145 mmol/L LAB CHEMISTRY METHOD 05/03/2024 11:56 AM [facility] Potassium 3.8 3.5 - 5.5 mmol/L LAB CHEMISTRY METHOD 05/03/2024 11:56 AM [facility] Chloride 101 96 - 110 mmol/L LAB CHEMISTRY METHOD 05/03/2024 11:56 AM [facility] CO2 27 21 - 32 mmol/L LAB CHEMISTRY METHOD 05/03/2024 11:56 AM [facility] Anion Gap 7 3 - 11 LAB CHEMISTRY METHOD 05/03/2024 11:56 AM [facility] Glucose 264(H) 70 - 100 mg/dL LAB CHEMISTRY METHOD 05/03/2024 11:56 AM [facility] BUN 12 5 - 25 mg/dL LAB CHEMISTRY METHOD 05/03/2024 11:56 AM [facility] Creatinine 0.68 0.50 - 1.10 mg/dL LAB CHEMISTRY METHOD 05/03/2024 11:56 AM [facility] eGFR 105 >=60 mL/min/1. 73m2 LAB CHEMISTRY METHOD 05/03/2024 11:56 AM [facility] Comment:Calculation based on the??Chronic Kidney Disease Epidemiology Collaboration (CKD-EPI) equation refit??without adjustment for race. BUN/Creatinine Ratio 17.6 LAB CHEMISTRY METHOD 05/03/2024 11:56 AM [facility] Calcium 9.6 8.5 - 10.5 mg/dL LAB CHEMISTRY METHOD 05/03/2024 11:56 AM [facility] AST (SGOT) 20 10 - 42 unit/L LAB CHEMISTRY METHOD 05/03/2024 11:56 AM [facility] ALT (SGPT) 36 10 - 60 unit/L LAB CHEMISTRY METHOD 05/03/2024 11:56 AM [facility] Alkaline Phosphatase 178(H) 42 - 121 unit/L LAB CHEMISTRY METHOD 05/03/2024 11:56 AM [facility] Total Protein 8.0 6.0 - 8.0 g/dL LAB CHEMISTRY METHOD 05/03/2024 11:56 AM [facility] Albumin 4.1 3.2 - 5.0 g/dL LAB CHEMISTRY METHOD 05/03/2024 11:56 AM [facility] Total Bilirubin 0.3 0.0 - 1.4 mg/dL LAB CHEMISTRY METHOD 05/03/2024 11:56 AM [facility] Blood Venous blood specimen / Unknown Venipuncture / Unknown 05/03/2024 10:36 AM EST 05/03/2024 11:27 AM EST us Jefry Berumen MD LAB BLOOD ORDERABLES Final Resu lt [facility] [address] [place] [address], * ECG-Annotated (05/03/2024) Provider Onbase ECG ORDERABLES Final Result from Last 3 Months Insurance MEDICAID - [place] Care Teams Business Investor Relationship Specialty Start Date End Date Physician, No Pcp PCP - General 05/03/24
--- OUTSIDE RECORDS SUMMARY | 2024-08-01 16:46 | XMS_ITS | Encounter Summary ---
Author Organization [facility] Address [address] [place] [address] 7[address] [place] [address] Care Team Providers Care Fleet Administrative Assistant Name Role Phone Bonnie Gay MD Primary Care Provider [phone] Reason for Visit * Reason Onset Date Comments Med Refill 07/15/2024 Encounter Details Date Type Department Care Team (Late st Contact Info) Description 07/15/2024 Refill [facility] [address] [place] [address] Leslee Torres, RN Opioid dependence, uncomplicated (CMS/HCC) Social History Tobacco Use Types Packs/Day Years [...] Description 09/16/2024 9:00 AM EDT Office Visit [facility] MED [facility] PEDS [address] [place], [place] [phone] Tucker Moore MD [address] [place] [address] documented as of this encounter Visit Diagnoses Diagnosis Opioid dependence, uncomplicated (CMS/HCC) documented in this encounter Additional Health Concerns Assessment Noted Time PHQ-9 Depression Total Score: 6 05/24/19 23 11:43 AM EST documented as of this encounter Care Teams Fleet Administrative Assistant Relationship Specialty Start Date End Date Bonnie Gay MD [address] [place] [address] [place] [address] PCP - General Internal Medicine 04/17/15 documented as of this encounter
--- OUTSIDE RECORDS SUMMARY | 2024-08-01 16:46 | XMS_ITS | Encounter Summary ---
Author Organization [employer] [facility] Address [address] [place] [address] 7 [place] [address] Care Team Providers Care Water And Sewer Systems Superintendent Name Role Phone Bonnie Gay MD Primary Care Provider [phone]- [phone] Reason for Referral * Consultation (Routine) - Closed Specialty Diagnoses / Procedures Referred By Contac t Referred To Contact Neurology Diagnoses LOC (loss of consciousness) (CMS/HCC) Disturbance of memory Bonnie Gay MD [address] [place] [address] Phone: tel: fax: Robel Rodriguez MD [address] [place] [address], [address] [place] [address] Phone: tel: fax: Referral ID Status Reason Start Date Expiration Date V isits Requested Visits Authorized [id number] Closed Specialty Services Required 02/14/2024 02/13/2025 1 1 Encounter Details Date Type Department Care Team ([facility] st Contact Info) Description 02/14/[address] [facility]EDS [address] [place], [place] [phone] Bonnie Gay MD [address] [place], [place] [phone] LOC (loss of consciousness) (CMS/HCC) (Primary Dx); [...] Upcoming Encounters Date Type Department Care Team ([facility] st Contact Info) Description 09/16/2024 9:00 AM EDT Office Visit [facility] MED & PEDS [address] [place], [place] [phone] Tucker Moore MD [address] [place] [address] documented as of this encounter Procedures Procedure [...] documented as of this encounter Care Teams Water And Sewer Systems Superintendent Relationship Specialty Start Date End Date Bonnie Gay MD [address] [place] [address] PCP - General Internal Medicine 04/17/15 documented as of this encounter
--- OUTSIDE RECORDS SUMMARY | 2024-08-01 16:46 | XMS_ITS | Encounter Summary ---
Author Organization [employer] Address [address] [facility] 7 [place] [address] Care Team Providers Care Hvac Maintenance Technician Name Role Phone Bonnie Gay MD Primary Care Provider [phone]- [phone] Reason for Visit * Reason Onset Date Comments Call Back Request 08/23/2023 Encounter Details Date Type Department Care Team ([facility] st Contact Info) Description 08/23/2023 Telephone [facility] [address] [place] [address] Bonnie Gay MD [address] [place], [place] [phone] Call Back Request Social History Tobacco Use [...] Description 09/16/2024 9:00 AM EDT Office Visit [facility] MED & PEDS [address] [place] [address] Tucker Moore MD [address] [place] [address] documented as of this encounter Visit Diagnoses Not on filedocumented in this encounter Additional Health Concerns Assessment Noted Time PHQ-9 Depression Total Score: 6 05/24/19 23 11:43 AM EST documented as of this encounter Care Teams Hvac Maintenance Technician Relationship Specialty Start Date End Date Bonnie Gay MD [address] [place] [address] PCP - General Internal Medicine 04/17/15 documented as of this encounter
--- OUTSIDE RECORDS SUMMARY | 2024-08-01 16:46 | XMS_ITS | Encounter Summary ---
Author Organization [employer] Address [address] [place] [address] 7t [place] [address] Care Team Providers Care Sand Technician Name Role Phone Bonnie Gay MD Primary Care Provider [phone] Reason for Visit * Reason Onset Date Comments Med Refill 07/15/2024 Encounter Details Date Type Department Care Team (Late st Contact Info) Description 07/15/2024 Refill [facility] [address] [place] [address] Leslee Torres, RN Opioid dependence, [...] Description 09/16/2024 9:00 AM EDT Office Visit [facility] MED & PEDS [address] [place], [place] [phone] Tucker Moore MD [address] [place] [address] documented as of this encounter Visit Diagnoses Diagnosis Opioid dependence, uncomplicated (CMS/HCC) documented in this encounter Additional Health Concerns Assessment Noted Time PHQ-9 Depression Total Score: 6 05/24/19 23 11:43 AM EST documented as of this encounter Care Teams Sand Technician Relationship Specialty Start Date End Date Bonnie Gay MD [address] [place] [address] [place] [address] PCP - General Internal Medicine 04/17/15 documented as of this encounter
--- OUTSIDE RECORDS SUMMARY | 2024-08-01 16:46 | XMS_ITS | Encounter Summary ---
Author Organization [employer] Address [address] [facility] 7 [place] [address] Care Team Providers Care Acid Splicer Name Role Phone Bonnie Gay MD Primary Care Provider [phone]- [phone] Reason for Visit * Reason Onset Date Comments new med 11/13/2023 Encounter Details Date Type Department Care Team (Late st Contact Info) Description 11/13/2023 Telephone [facility] [address] [place] [address] Bonnie Gay MD [address] [place], [place] [phone] new med Social History Tobacco Use Types [...] Miscellaneous Notes * Telephone Encounter - Mily Roweoyo - 11/13/2023 12:06 PM EDT Tc from pt requesting migraine medication that can be taken with her regular meds, stated discussedwith PCP before. documented in this encounter Plan of Treatment Upcoming Encounters Date Type Department Care Team (Late st Contact Info) Description 09/16/2024 9:00 AM EDT Office Visit [facility] MED & PEDS [address] [place] [address] Tucker Moore MD [address] [place] [phone] documented as of this encounter Visit Diagnoses Not on filedocumented in this encounter Additional Health Concerns Assessment Noted Time PHQ-9 Depression Total Score: 6 05/24/19 23 11:43 AM EST documented as of this encounter Care Teams Acid Splicer Relationship Specialty Start Date End Date Bonnie Gay MD [address] [place] [address] PCP - General Internal Medicine 04/17/15 documented as of this encounter
== END 2024-08-01 13:27 | disposition home or self-care (01) ==
LOC: HO.HHCX 13:26
PROVIDERS: Visit Provider Family Medicine
DX: M25.511 Pain in right shoulder (principal); M25.512 Pain in left shoulder; G89.29 Other chronic pain
CPT/HCPCS: 73030

== ENCOUNTER → 2024-08-01 13:28 | Outpatient (BNV) | payer MEDICAID, SELFPAY | PROVIDERS: Visit Provider Radiology Diagnostic Radiology | DX: M25.512 Pain in left shoulder (principal); M75.31 Calcific tendinitis of right shoulder | CPT/HCPCS: 73030 ==

== ENCOUNTER 2025-01-02 15:39 | Emergency (ER) | payer MEDICAID, SELFPAY ==
--- OUTSIDE RECORDS SUMMARY | 2025-01-02 16:49 | XMS_ITS | Encounter Summary ---
Author Organization [employer] Address [address] [facility] 7t [place] [address] Care Team Providers Care Delivery Supervisor Name Role Phone Bonnie Gay MD Primary Care Provider [phone]- [phone] Gia Cintron PharmD Unavailable [phone] Reason for Visit * Reason Onset Date Comments Appointment Request 08/18/2022 Encounter Details Date Type Department Care Team ([facility] st Contact Info) Description 08/18/2022 Telephone [facility] [address] [place] [address] Bonnie Gay MD [address] [place], [place] [phone] Appointment Request Social History Tobacco Use Types [...] for A1c ) Please contact pt at [phone] documented in this encounter Plan of Treatment Upcoming Encounters Date Type Department Care Team (Late st Contact Info) Description 01/13/2025 1:00 PM EDT Medication Management [facility] MED & PEDS [address] [place] [address] Gia Cintron PharmD [address] [place] [phone] 01/27/2025 11:30 AM EDT Office Visit [facility] MED & PEDS [address] [place] [address] Bonnie Gay MD [address] [place] [address] 02/03/2025 9:00 AM EDT Office Visit [facility] MED & PEDS [address] [place] [address] Tucker Moore MD [address] [place] [address] documented as of this encounter Visit Diagnoses Diagnosis Opioid dependence, uncomplicated (CMS/HCC)- Primary documented in this encounter Additional Health Concerns Assessment Noted Time PHQ-9 Depression Total Score: 6 05/24/19 23 11:43 AM EST documented as of this encounter Care Teams Delivery Supervisor Relationship Specialty Start Date End Date Bonnie Gya MD [address] [place] [address] PCP - General Internal Medicine 04/17/15 Gia Cintron PharmD [address] [place] [address] Pharmacist Pharmacy 11/04/24 documented as of this encounter
--- OUTSIDE RECORDS SUMMARY | 2025-01-02 16:50 | XMS_ITS | Encounter Summary ---
Author Organization [facility] Address [address] [place] [address] 7 [place] [address] Care Team Providers Care Fabrication Engineer Name Role Phone Bonnie Gay MD Primary Care Provider [phone]- [phone] Gia Cintron PharmD Unavailable [phone] Encounter Details Date Type Department Care Team ([facility] Contact Info) Description 09/26/2023 Orders Only [facility] MED & PEDS [address] [place] [address] Bonnie Gay MD [address] [place] [address] Social History Tobacco Use Types Packs/Day Years [...] Department Care Team (Late Contact Info) Description 01/13/2025 1:00 PM EDT Medication Management [facility] MED [facility] PEDS [address] [place] [address] Gia Cintron PharmD [address] [place] [address] 01/27/2025 11:30 AM EDT Office Visit [facility] MED [facility] PED[facility] [address] [place], [place] [phone] Bonnie Gay MD [address] [place], [place] 02/03/2025 9:00 AM EDT Office Visit [facility] MED [facility] PED[facility] [address] [place] [address] Tucker Moore MD [address] [place] [address] documented as of this encounter Visit Diagnoses Not on filedocumented in this encounter Additional Health Concerns Assessment Noted Time PHQ-9 Depression Total Score: 6 05/24/19 23 11:43 AM EST documented as of this encounter Care Teams Fabrication Engineer Relationship Specialty Start Date End Date Bonnie Gay MD [address] [place] [address] PCP - General Internal Medicine 04/17/15 Gia Cintron, Ami [address] [place] [address] Pharmacist Pharmacy 11/04/24 documented as of this encounter
--- OUTSIDE RECORDS SUMMARY | 2025-01-02 16:50 | XMS_ITS | Encounter Summary ---
Author Organization [employer] Address [address] [place] [address] [place] [address] Care Team Providers Care Tin Plater Name Role Phone Bonnie Gay MD Primary Care Provider [phone] Gia Cintron PharmD Unavailable [phone] Reason for Referral * Consultation (Routine) - Closed Specialty Diagnoses / Procedures Referred By Kasi chen Referred To Contact Physical Therapy Diagnoses Bilateral wrist pain Taylor Amezquita MD [address] [place] [address] Phone: tel: fax: [facility] Physical Therapy [address] [place] [address] Phone: tel: fax: Referral ID Status Reason Start Date Expiration Date V isits Requested Visits Authorized [id number] Closed Specialty Services Required 08/01/2024 08/01/2025 20 20 Encounter Details Date Type Department Care Team (Late st Contact Info) Description 08/07/2024 Orders Only [facility] [address] [place] [address] [phone] Taylor Amezquita MD [address] [place] [address] [phone] Bilateral wrist pain (Primary Dx) Social History Tobacco Use Types [...] Description 01/13/2025 1:00 PM EDT Medication Management [facility] MED & PEDS [address] [place] [address] Gia Cintron PharmD [address] [place] [address] 01/27/2025 11:30 AM EDT Office Visit [facility]ED[facility] [address] [place] [address] Bonnie Gay MD 505 [place] [address] 02/03/2025 9:00 AM EDT Office Visit [facility] [address] [place] [address] Tucker Moore MD 230 [place] [address] Scheduled Referrals Name Type Priority Associated Diagnoses Orde r Schedule Referral to Physical Therapy Outpatient Referral Routine Bilateral wrist pain Expected: 08/07/2024 (Approximate), Expires: 08/07/2025 documented as of this encounter Goals Goal Patient Goal Type Associated Problems Recent Progress Patient-Stated? Author Take extra good care of health during Covid infection. General Yes Leslee Torres, [place] documented as of this encounter Visit Diagnoses Diagnosis Bilateral wrist pain- Primary documented in this encounter Additional Health Concerns Assessment Noted Time PHQ-9 Depression Total Score: 6 05/24/19 23 11:43 AM EST documented as of this encounter Care Teams Tin Plater Relationship Specialty Start Date End Date Bonnie Gay MD [address] [place] [phone] PCP - General Internal Medicine 04/17/15 Gia Cintron PharmD [address] [place] [address] Pharmacist Pharmacy 11/04/24 documented as of this encounter
--- OUTSIDE RECORDS SUMMARY | 2025-01-02 16:50 | XMS_ITS | Encounter Summary ---
Author Organization [employer] Address 75 [facility] 7 [place] [address] Care Team Providers Care Hydroelectric Powerplant Supervisor Name Role Phone Bonnie Gay MD Primary Care Provider [phone] Gia Cintron PharmD Unavailable [phone] Reason for Visit * Reason Onset Date Comments Call Back Request 08/23/2023 Encounter Details Date Type Department Care Team ([facility] st Contact Info) Description 08/23/2023 Telephone [facility] MED[facility]INE 230 [place] [address] Bonnie Gay MD 505 [place], [place] [phone] Call Back Request Social History Tobacco Use [...] 1:00 PM EDT Medication Management [facility] MED & PEDS [address] [place] [address] Gia Cintron, EnrikeD [address] [place] [address] 01/27/2025 11:30 AM EDT Office Visit [facility] MED & PEDS [address] [place] [address] Bonnei Gay MD 505 [place] [address] 02/03/2025 9:00 AM EDT Office Visit [facility] MED & PEDS [address] [place] [address] Tucker Moore MD 230 [place] [address] documented as of this encounter Visit Diagnoses Not on filedocumented in this encounter Additional Health Concerns Assessment Noted Time PHQ-9 Depression Total Score: 6 05/24/19 23 11:43 AM EST documented as of this encounter Care Teams Hydroelectric Powerplant Supervisor Relationship Specialty Start Date End Date Bonnie Gay MD [address] [place] [address] PCP - General Internal Medicine 04/17/15 Gia Cintron, EnrikeD [address] [place] [phone] Pharmacist Pharmacy 11/04/24 documented as of this encounter
--- OUTSIDE RECORDS SUMMARY | 2025-01-02 16:50 | XMS_ITS | Encounter Summary ---
Author Organization [email or web address] Address 75 [facility] 7 [place] [address] Care Team Providers Care Assembler Handbags Name Role Phone Bonnie Gay MD Primary Care Provider Gia Cintron PharmD Unavailable [phone] Reason for Visit * Reason Comments Med Refill Encounter Details Date Type Department Care Team (Late Contact Info) Description 06/19/2023 Refill [facility] DIABET[facility]NUTRITION 230 [place] [address] Bonnie Gay MD 505 [place] [address] Primary insomnia; Insomnia, unspecified Social History Tobacco [...] Description 01/13/2025 1:00 PM EDT Medication Management [facility] MED & PEDS 505 [place] [address] Gia Cintron PharmD 230 [place] [address] 01/27/2025 11:30 AM EDT Office Visit [facility] MED [facility] PED[facility] [address] [place], [place] [phone] Bonnie Gay MD 505 [place] [address] 02/03/2025 9:00 AM EDT Office Visit [facility] PED[facility] 505 [place] [address] Tucker Moore MD [address] [place] [address] documented as of this encounter Visit Diagnoses Diagnosis Primary insomnia Persistent disorder of initiating or maintaining sleep Insomnia, unspecified documented in this encounter Additional Health Concerns Assessment Noted Time PHQ-9 Depression Total Score: 6 05/24/19 23 11:43 AM EST documented as of this encounter Care Teams Assembler Handbags Relationship Specialty Start Date End Date Bonnie Gay MD [address] [place] [phone] PCP - General Internal Medicine 04/17/15 Gia Cintron, Ami [address] [place] [address] Pharmacist Pharmacy 11/04/24 documented as of this encounter
--- OUTSIDE RECORDS SUMMARY | 2025-01-02 16:50 | XMS_ITS | Clinical Summary ---
Author Organization [employer] Address 75 [facility] 7t [place] [address] Care Team Providers Care Lumber Buyer Name Role Phone Bonnie Gay MD Primary Care Provider [phone] Gia Cintron PharmD Unavailable [phone] Allergies Active Allergy Reactions Criticality Noted Date Comments Venlafaxine 04/18/2022 Medications * This document contains information received from the source organization and may not represent a complete record from that organization. albuterol (ProAir HFA) 108 (90 Base) MCG/ACT inhaler Inhale 2 puffs every 4 (four) hours if needed. 022 Active glucose-vitamin C 4-6 GM-MG oral gel 1 tab if FS < 70 mg/dl or if having symptoms of hypoglycemia 021 Active Easy Touch Lancets 33G/Twist misc TEST BLOOD SUGAR DAILY 100 each 3 023 Active Elastic Bandages & Supports (Wrist Brace Deluxe) miscIndications: Carpal tunnel syndrome of left wrist To use daily 1 each 023 Active albuterol (2.5 MG/3ML) 0.083% nebulizer solution INHALE ONE AMPULE USING A NEBULIZER THREE TIMES DAILY NEEDED 90 mL 1 023 Active Diclofenac Sodium 1 % gelIndications:C arpal tunnel syndrome of left wrist APPLY 2 GRAM'S TO AFFECTED AREA(s) THREE TIMES DAILY NEEDED 100 g 3 024 Active insulin pen needle (Pentips) 32G x 4 mm misc Use as instructed Twice daily 100 each Active SUMAtriptan (Imitrex) 100 MG tablet TAKE 1 TABLET BY MOUTH NEEDED, MAY TAKE SECOND DOSE AT LEAST 2 HOURS AFTER FIRST DOSE Active topiramate 50 MG tablet TAKE 1 TABLET BY MOUTH AT BEDTIME FOR 1 WEEK, THEN 1 TABLET TWICE A DAY DIRECTED FOR 30 DAYS Active insulin glargine (Lantus SoloStar) 100 UNIT/ML pen INJECT 20 UNITS SUBCUTANEOUSLY EVERY MORNING 15 mL 2 Active Continuous Glucose Sensor (FreeStyle Jeffy 3 Plus Sensor) misc 1 each every 15 days. 2 each Active glucose blood (FreeStyle Precision Stanley Test) test strip Test blood sugar up to 3 times daily as directed 100 each Active buprenorphine-na loxone (Suboxone) 4-1 MG per sublingual filmIndications: Opioid dependence, uncomplicated (CMS/HCC) Place 1 Film under the tongue Once per day. 28 Film 2 2024 Active Buprenorphine HCl-Naloxone HCl (Suboxone) 8-2 MG SL filmIndications: Opioid dependence, uncomplicated (CMS/HCC) Place 2 Film under the tongue Once per day. 56 Film 2 2024 Active glipiZIDE (Glucotrol) 5 MG tablet Take 1 tablet (5 mg) by mouth before evening meal. 90 tablet Active nicotine (Nicoderm CQ) 21 MG/24HR patch Place 1 patch on the skin 1 (one) time each day at the same time. 42 patch 1 Active nicotine polacrilex (Commit) 4 MG lozenge Dissolve 1 lozenge in mouth as needed for cravings, not to exceed 20 per day 144 lozenge 11 Active traZODone (Desyrel) 100 MG tabletIndication s:Primary insomnia Take 1 tablet (100 mg) by mouth at bedtime. 30 tablet Active QUEtiapine (SEROquel) 50 MG tabletIndication s:Insomnia, unspecified TAKE ONE TABLET BY MOUTH EVERY MORNING AND TAKE TWO TABLETS AT BEDTIME 90 tablet Active traZODone (Desyrel) 100 MG tabletIndication s:Primary insomnia TAKE ONE TABLET BY MOUTH AT BEDTIME 30 tablet 025 2024 Discontinued(R eorder (will not trigger notification to Pharmacy)) QUEtiapine (SEROquel) 50 MG tabletIndication s:Insomnia, unspecified TAKE ONE TABLET BY MOUTH EVERY MORNING AND TAKE TWO TABLETS AT BEDTIME 90 tablet 025 2024 Discontinued(R eorder (will not trigger notification to Pharmacy)) Active Problems Problem Noted Date Diagnosed Date Status post cholecystectomy 11/04/2024 Cannabis dependence, daily use 10/15/2024 Chest wall discomfort 08/01/2024 Assessment & Plan (08/01/2024 1:07 PM EDT): Reported protrusion of mid chest, on exam appreciated normal Xiphoid process. Reassured pt and encouraged not to palpate as this may cause discomfort/pain. Chronic pain of both shoulders 08/01/2024 Assessment & Plan (08/01/2024 1:07 PM EDT): Exam benign. -ordered bilateral XR's 08/01/24. -referred to PT 08/01/24. Cough 05/25/2022 Generalized anxiety disorder with panic attacks 07/01/2021 Heavy cigarette smoker 03/26/2021 Asthma 12/09/2020 Diabetes mellitus 05/08/2014 Carpal tunnel syndrome 05/18/2012 Assessment & Plan (08/01/2024 1:07 PM EDT): Pain to left wrist. -referred to PT 08/01/24 Chronic hepatitis C 05/18/1999 Opioid use disorder, severe, in sustained remiss ion 05/18/1999 Encounters * This document contains information received from the source organization and may not represent a complete record from that organization. Date Type Department Care Team Description 12/17/2024 Telephone [facility] [address] [place] [address] Bonnie Gay MD Referral 12/12/2024 Refill [facility] [address] [place], [place] [phone] Bonnie Gay MD Primary insomnia; Insomnia, unspecified 12/10/2024 1:30 PM EDT Telemedicine [facility] MED & PEDS [address] [place] [address] Gia Citnron PharmD Type 2 diabetes mellitus with hyperglycemia, with long-term current use of insulin ([facility]) (Primary Dx) 11/25/2024 Travel 11/19/2024 Telephone [facility] PED[facility] [address] [place] [address] Bonnie Gay MD recall appt 11/11/2024 9:00 AM EDT Office Visit [facility] PEDS [address] [place] [address] Tucker Moore MD Opioid type dependence, continuous ([facility]) (Primary Dx) 11/11/2024 Telephone [facility] P[facility]S [address] [place] [address] Bonnie Gay MD Med Refill 11/11/2024 Travel 11/08/2024 Refill [facility] PEDS [address] [place] [address] Bonnie Gay MD Primary insomnia; Insomnia, unspecified 11/05/2024 Refill [facility] [address] [place], [place] [phone] Tucker Moore MD Opioid dependence, uncomplicated ([facility]) 11/04/2024 Travel 10/14/2024 Telephone [facility] [address] [place] [address] Bonnie Gay MD from Last 3 Months Immunizations Immunization Administration Dates Next Due Hep A, Adult 03/11/2010,09/10/2009 Hep B, Unspecified 06/25/2003,09/13/2001 Influenza Whole 03/05/2012,01/26/2009 Td (adult), unspecified 09/13/2001 Tdap 04/17/2015,03/27/2012 Social History Tobacco Use Types Packs/Day Years Used Date Smoking Tobacco: Every Day Cigarettes 1 30 Smokeless Tobacco: Never Tobacco Cessation:Ready to Q uit: Not Asked; Counseling Given: Not Answered Comments:Would like to quit but it's so hard. Alcohol Use Standard Drinks/Week Comments Never 0 (1 standard drink = 0.6 oz pur e alcohol) Depression Answer Date Recorded Patient Health Questionnaire-9 Score 18 10/14/2024 Patient Health Questionnaire-9 Score 18 10/14/2024 Last PHQ-9: Questionnaire Data Not on file 0 10/14/2024 Housing Stability Answer Date Recorded What is your housing situation today? I have [place]io field 09/11/[address] you li ve. Do you have problems with any of the following? Pests such as bugs, ants, or mice;Water leaks 09/11/2024 Food Insecurity Answer Date Recorded Within the past 12 months, y ou worried that your food would run out before you got money to buy more: Sometimes True 2024 Within the past 12 months,th e food you bought just didn't last and you didn't have enough money to get more: Sometimes True 09/11/2024 Transportation Answer Date Recorded In the past 12 months, has l ack of transportation kept you from medical appts, meetings, work or from getting things needed for daily living? No 09/11/2024 Utilities Answer Date Recorded In the past 12 months, has t he electric, gas, oil or water company threatened to shut off services in your home? No 09/11/2024 Depression Answer Date Recorded Patient Health Questionnaire-2 Score 4 10/14/2024 Internet Access Answer Date Recorded Internet Access Q1 Yes 09/11/2024 Internet Access Q2 Not on file 09/11/2024 Comments Unknown Sex and Gender Information Value Date Recorded Sex Assigned at Female 03/07/2022 10:16 AM EDT Legal Sex Female 10:16 AM EDT Gender Identity Female 03/07/2022 10:16 AM EDT Sexual Orientation Straight 03/07/2022 10 :16 AM EDT Last Filed Vital Signs Vital Sign Reading Time Taken Comments Blood Pressure 130/81 09/19/2024 1:45 PM EDT Pulse 101 09/19/2024 1:45 PM EDT Temperature 36.7 C (98 F) 09/19/2024 1:45 PM EDT Respiratory Rate 20 09/19/2024 1:45 PM EDT Oxygen Saturation 94% 09/19/2024 1:45 PM EDT Inhaled Oxygen Concentration - - Weight 74.8 kg (165 lb) 09/19/2024 1:45 PM EDT Height 156 cm (5' 1.42 ) 09/19/2024 1:45 PM EDT Body Mass Index 30.75 09/19/2024 1:45 PM EDT Plan of Treatment Upcoming Encounters Date Type Department Care Team (Late st Contact Info) Description 01/13/2025 1:00 PM EDT Medication Management [facility] MED & PEDS [address] [place] [address] Gia Cintron PharmD [address] [place] [address] 01/27/2025 11:30 AM EDT Office Visit [facility] & PEDS [address] [place] [address] Bonnie Gay MD 505 [place] [address] 02/03/2025 9:00 AM EDT Office Visit [facility] PEDS [address] [place] [address] Tucker Moore MD [address] [place] [address] Health Maintenance Due Date Last Done Comments CT Colonography 1971 Colonoscopy 1971 Colorectal Cancer Screening 1971 FIT DNA/Cologuard 1971 FIT 1971 FOBT 1971 Sigmoidoscopy 1971 Disability Screening 1971 Eye Exam 1981 Pneumococcal Vaccine: 50+ Years (1 of 2 - PCV) 1990 Pap Smear 1992 Cervical Cancer Screening 2001 HPV/Cotest 2001 Hepatitis B Vaccines (3 of 3 - 19+ 3-dose series) 08/20/2003 06/25/2003, 09/13/2001 Mammogram 2011 Lung Cancer Screening 2021 Zoster Vaccines (1 of 2) 2021 Diabetes: Urine Protein Screening 09/27/2022 09/27/2021, 03/03/2020 Lipid Panel 09/27/2022 09/27/2021, 03/03/2020 COVID-19 Vaccine ( season) 2024 10/15/2020, 09/17/2020 Diabetes: Hemoglobin A1C 12/20/2024 025, 04/12/2023, 03/08/2023, Additional history exists Influenza Vaccine (#1) 2025 03/05/2012, 2008 Depression Monitoring 04/15/2025 10/14/2024, 025 DTaP/Tdap/Td Vaccines (3 - Td or Tdap) 04/17/2025 04/17/2015, 03/27/2012, 09/13/2001 SDOH Screening 09/11/2025 09/11/2024 Alcohol/Substance Use Screening 09/19/2025 09/19/2024 Diabetes: Foot Exam 09/19/2025 09/19/2024 Tobacco Screening 09/19/2025 09/19/2024 RSV Patients and Patients Aged 60 years or older (1 - 1-dose 75+ series) 2046 Hepatitis A Vaccines Completed 03/11/2010, 09/11/19 10 HIV Screening Completed 09/27/2021 HIB Vaccines Aged Out No longer eligi ble based on patient's age to complete this topic HPV Vaccines Aged Out No longer eligi ble based on patient's age to complete this topic IPV Vaccines Aged Out No longer eligi ble based on patient's age to complete this topic Meningococcal B Vaccine Aged Out No l onger eligible based on patient's age to complete [...] during Covid infection. General Yes Leslee Torres, sales assistant entertainment and media Procedure Name Priority Date/Time Associated Diagnosis Comments POCT KAYLA-14 URINE DRUG SCREEN Routine 11/11/2024 9:22 AM EDT Opioid type dependence, continuous ([facility]) POCT GLYCATED HEMOGLOBIN, TOTAL Routine 09/19/2024 2:27 PM EDT Type 2 diabetes mellitus with hyperglycemia, with long-term current use of insulin ([facility]) ALBUMIN, RANDOM URINE W/CREATININE Routine 09/27/2021 10:10 AM EDT HIV 1/2 ANTIGEN/ANTIBODY, FOURTH GENERATION W/RFL Routine 09/27/2021 9:50 AM EDT LIPID PANEL, STANDARD Routine 09/27/2021 9:49 AM EDT from Last 3 Months or Most Recently Relevant to Health Maintenance Results * (ABNORMAL) POCT KAYLA-14 Urine Drug Screen (11/11/2024 9:22 AM EDT) THC Positive(A) Negative Cocaine Screen, Urine Negative Negative Opiate Screen, Urine Negative Negative Methamphetamine Screen Urine Negative Negative Amphetamine Screen, Urine Negative Negative Benzodiazepines Screen, Urine Negative Negative Barbiturate Screen, Urine Negative Negative Methadone Screen, Urine Negative Negative Buprenophine Screen, Urine Positive(A) Negative TCA, Urine Negative Negative MDMA Urine Negative Negative ng/mL Oxycodone Screen, Urine Negative Negative Phencyclidine (PCP), Urine Negative Negative Fentanyl, Urine Negative Negative Urine Urine specimen obtained by clean catch procedure / Unknown 11/11/2024 9:22 AM EDT Tucker Moore MD POINT OF CARE TEST ENTER/EDIT OR DERABLES Final Result * (ABNORMAL) POCT HGB A1C (09/19/2024 2:27 PM EDT) Hemoglobin A1C 10.7(A) 4.0 - 6.0 % QC Media Lot # [id number] Lot# Expiration Date [id number] Comment:random Blood 09/19/2024 2:27 PM EDT Bonnie Gay MD POINT OF CARE TEST ENTER/ED IT ORDERABLES Edited Result - Final * ALBUMIN, RANDOM URINE W/CREATININE (09/27/2021 10:10 AM EDT) Microalbumin Urine 0.8 See Note: mg/dL [facility] Comment: Reference Range: Reference Range Not established Microalb/Creat Ratio 4 <30 mcg/mg creat [facility] Comment: The ADA defines abnormalities in albumin excretion as follows: Albuminuria Category Result (mcg/mg creatinine) Normal to Mildly increased <30 Moderately increased 30-299 Severely increased > OR = 300 The ADA recommends that at least two of three specimens collected within a 3-6 month period be abnormal before considering a patient to be within a diagnostic category. Creatinine, Urine 190 20 - 275 mg/dL [facility] 09/27/2021 10:1 0 AM EDT us Bonnie Gay MD LAB URINE ORDERABLES Final Result [facility] [address] * HIV 1/2 ANTIGEN/ANTIBODY,FOURTH GENERATION W/RFL (09/27/2021 9:50 AM EDT) HIV-1/2 ANTIGEN AND ANTIBODIES, 4TH GENERATION W/ REFLEX NON-REACT SLOAN NON-REACT SLOAN [facility] Comment: HIV-1 antigen and HIV-1/HIV-2 antibodies were not detected. There is no laboratory evidence of HIV infection. PLEASE NOTE: This information has been disclosed to you from records whose confidentiality may be protected by state law. If your state requires such protection, then the state law prohibits you from making any further disclosure of the information without the specific written consent of the person to whom it pertains, or as otherwise permitted by law. A general authorization for the release of medical or other information is NOT sufficient for this purpose. For additional information please refer to http://education.PEVESA.NanoAntibiotics/faq/DTF465 (This link is being provided for informational/ educational purposes only.) The performance of this assay has not been clinically validated in patients less than 2 years old. 09/27/2021 9:50 AM EDT us Tucker Moore MD LAB BLOOD ORDERABLES Final Resul t Performing Organization Address [facility] Co de Phone Number [facility] [address] * (ABNORMAL) LIPID PANEL, STANDARD (09/27/2021 9:49 AM EDT) Chol/HDLC Ratio 3.9 <5.0 (calc) [facility] Cholesterol, Total 152 <200 mg/dL [facility] HDL Cholesterol 39(L) > OR = 50 mg/dL [facility] LDL Cholesterol 93 mg/dL (calc) [facility] Comment: Reference range: <100 Desirable range <100 mg/dL for primary prevention; <70 mg/dL for patients with CHD or diabetic patients with > or = 2 CHD risk factors. LDL-C is now calculated using the Ramona calculation, which is a validated novel method providing better accuracy than the Friedewald equation in the estimation of LDL-C. Bertrand SS et al. HAILEY. 2013;310(19): 0272-5802 (http://education.Kidzloop.NanoAntibiotics/faq/FUY896) Non-HDL Cholesterol 113 <130 mg/dL (calc) [facility] Comment: For patients with diabetes plus 1 major ASCVD risk factor, treating to a non-HDL-C goal of <100 mg/dL (LDL-C of <70 mg/dL) is considered a therapeutic option. Triglycerides 107 <150 mg/dL [facility] 09/27/2021 9:49 AM EDT us Bonnie Gay MD LAB BLOOD ORDERABLES Final Result Performing Organization Address [facility] Co de Phone Number [facility] [address] from Last 3 Months or Most Recently Relevant to Health Maintenance Insurance [facility] C3 Care Teams Lumber Buyer Relationship Specialty Start Date End Date Bonnie Gay MD [address] [place] [address] PCP - General Internal Medicine 04/17/15 Gia Cintron PharmD [address] [place] [address] Pharmacist Pharmacy 11/04/24
--- OUTSIDE RECORDS SUMMARY | 2025-01-02 16:50 | XMS_ITS | Encounter Summary ---
Author Organization [employer] Address 75 [facility] 7 [place] [address] Care Team Providers Care Social Service Agency Director Name Role Phone Bonnie Gay MD Primary Care Provider [phone] Gia Cintron PharmD Unavailable [phone] Reason for Visit * Reason Onset Date Comments new med 11/13/2023 Encounter Details Date Type Department Care Team (Late st Contact Info) Description 11/13/2023 Telephone [facility] [address] [place] [address] Bonnie Gay MD [address] [place], [place] [phone] new med Social History Tobacco Use Types [...] Description 01/13/2025 1:00 PM EDT Medication Management [facility] [address] [place] [address] Gia Cintron PharmD [address] [place] [address] 01/27/2025 11:30 AM EDT Office Visit [facility] [address] [place] [address] Bonnie Gay MD [address] [place] [address] 02/03/2025 9:00 AM EDT Office Visit [facility] [address] [place] [address] Tucker Moore MD [address] [place] [address] documented as of this encounter Visit Diagnoses Not on filedocumented in this encounter Additional Health Concerns Assessment Noted Time PHQ-9 Depression Total Score: 6 05/24/19 23 11:43 AM EST documented as of this encounter Care Teams Social Service Agency Director Relationship Specialty Start Date End Date Bonnie Gay MD [address] [place] [address] PCP - General Internal Medicine 04/17/15 Gia Cintron PharmD [address] [place] [address] Pharmacist Pharmacy 11/04/24 documented as of this encounter
--- OUTSIDE RECORDS SUMMARY | 2025-01-02 16:50 | XMS_ITS | Encounter Summary ---
Author Organization [employer] Address [address] [facility] 7t [place] [address] Care Team Providers Care Aviation Technician Name Role Phone Bonnie Gay MD Primary Care Provider [phone]- [phone] Gia Cintron PharmD Unavailable [phone] Reason for Visit * Reason Onset Date Comments Med Refill 07/15/2024 Encounter Details Date Type Department Care Team (Late Contact Info) Description 07/15/2024 Refill [facility] MEDICINE [address] [place], [place] [phone] Leslee Torres RN Opioid dependence, uncomplicated (CMS/HCC) Social History [...] Upcoming Encounters Date Type Department Care Team ([facility] Contact Info) Description 01/13/2025 1:00 PM EDT Medication Management [facility] MED & PEDS [address] [place] [address] Gia Cintron PharmD [address] [place] [address] 01/27/2025 11:30 AM EDT Office Visit [facility] MED & PEDS [address] [place], [place] [phone] Bonnie Gay MD [address] [place], [place] 02/03/2025 9:00 AM EDT Office Visit [facility] MED & PEDS [address] [place] [address] Tucker Moore MD [address] [place] [address] documented as of this encounter Visit Diagnoses Diagnosis Opioid dependence, uncomplicated (CMS/HCC) documented in this encounter Additional Health Concerns Assessment Noted Time PHQ-9 Depression Total Score: 6 05/24/19 23 11:43 AM EST documented as of this encounter Care Teams Aviation Technician Relationship Specialty Start Date End Date Bonnie Gay MD [address] [place] [address] PCP - General Internal Medicine 04/17/15 Gia Cintron PharmD [address] [place] [address] Pharmacist Pharmacy 11/04/24 documented as of this encounter
--- OUTSIDE RECORDS SUMMARY | 2025-01-02 16:50 | XMS_ITS | Clinical Summary ---
Author Organization [facility] Address [address] [place] [address] Phone Care Team Providers Care Hr Analyst Name Role Phone Physician, No Pcp Primary Care Provider Unavaila ble Allergies Active Allergy Reactions Criticality Noted Date Comments Iodinated Contrast Media Nausea And Vomiting Medium Medications naloxone (NARCAN) 1 mg/mL injection Inject 2 mL (2 mg total) into the shoulder, thigh, or buttocks 1 (one) time if needed for opioid reversal. May repeat every 2-3 minutes as needed until medical assistance available. 4 mL 5 08/24/19 26 Active Surgical History Surgery Date Site/Laterality Comments CHOLECYSTECTOMY [...] Sign Reading Time Taken Comments Blood Pressure 192/81 08/23/2024 12:51 PM EDT Pulse 79 08/23/2024 12:51 PM EDT Temperature 36.6 C (97.9 F) 08/23/2024 12:51 PM EDT Respiratory Rate 23 08/23/2024 12:51 PM EDT Oxygen Saturation 93% 08/23/2024 12:51 PM EDT Inhaled Oxygen Concentration - - Weight 81.6 [...] Years (1 of 2 - PCV) 1990 Cervical Cancer Screening: P ap Smear 1992 Hepatitis B Vaccines (3 of 3 - 19+ 3-dose series) 08/20/2003 06/25/2003, 09/13/2001 Zoster Vaccines (1 of 2) 2021 Colorectal Cancer Screening: Colonoscopy 04/10/2022 Hepatitis C Screening 04/10/2022 Lung Cancer Screening (Low Dose CT) 04/10/2022 Social Influencers of Health Screening 04/10/2022 COVID-19 Vaccine (3 - 2023-2 5 season) 2024 10/15/2020, 09/17/2020 Diabetes: Annual Urine Albumin-Creatinine Ratio (uACR) 05/03/2024 Depression Screening 05/08/2024 Influenza Vaccine (#1) 2025 2, 01/26/2009 Diabetes: Blood Sugar Contro l Test (HGBA1C) 03/22/2025 09/19/2024, 04/12/2023 DTaP,Tdap,and Td Vaccines (4 - Td or Tdap) 04/17/2025 04/17/2015, 03/27/2012, 09/13/2001 Diabetes: Annual GFR (Glomerular Filtration Rate) 08/23/2025 08/23/2024, 05/03/2024 Cholesterol Screening (Lipid Panel) 09/27/2026 09/27/2021 [...] Procedure Name Priority Date/Time Associated Diagnosis Comments COMPREHENSIVE METABOLIC PANEL STAT 08/23/2024 10:45 AM EDT from Last 3 Months or Most Recently Relevant to Health Maintenance Results * (ABNORMAL) Comprehensive Metabolic Panel (CMP) (08/23/2024 10:45 AM EDT) Sodium 137 133 - 145 mmol/L LAB CHEMISTRY METHOD 08/23/2024 11:26 AM [facility] Potassium 3.9 3.5 - 5.5 mmol/L LAB CHEMISTRY METHOD 08/23/2024 11:26 AM [facility] Chloride 103 96 - 110 mmol/L LAB CHEMISTRY METHOD 08/23/2024 11:26 AM [facility] CO2 25 21 - 32 mmol/L LAB CHEMISTRY METHOD 08/23/2024 11:26 AM [facility] Anion Gap 9 3 - 11 LAB CHEMISTRY METHOD 08/23/2024 11:26 AM [facility] Glucose 309(H) 70 - 100 mg/dL LAB CHEMISTRY METHOD 08/23/2024 11:26 AM [facility] BUN 13 5 - 25 mg/dL LAB CHEMISTRY METHOD 08/23/2024 11:26 AM [facility] Creatinine 0.66 0.50 - 1.10 mg/dL LAB CHEMISTRY METHOD 08/23/2024 11:26 AM [facility] eGFR 105 >=60 mL/min/1. 73m2 LAB CHEMISTRY METHOD 08/23/2024 11:26 AM [facility] Comment:Calculation based on the Chronic Kidney Disease Epidemiology Collaboration (CKD-EPI) equation refit without adjustment for race. BUN/Creatinine Ratio 19.7 LAB CHEMISTRY METHOD 08/23/2024 11:26 AM [facility] Calcium 9.8 8.5 - 10.5 mg/dL LAB CHEMISTRY METHOD 08/23/2024 11:26 AM [facility] AST (SGOT) 13 10 - 42 unit/L LAB CHEMISTRY METHOD 08/23/2024 11:26 AM [facility] ALT (SGPT) 25 10 - 60 unit/L LAB CHEMISTRY METHOD 08/23/2024 11:26 AM [facility] Alkaline Phosphatase 175(H) 42 - 121 unit/L LAB CHEMISTRY METHOD 08/23/2024 11:26 AM [facility] Total Protein 8.0 6.0 - 8.0 g/dL LAB CHEMISTRY METHOD 08/23/2024 11:26 AM [facility] Albumin 4.0 3.2 - 5.0 g/dL LAB CHEMISTRY METHOD 08/23/2024 11:26 AM [facility] Total Bilirubin 0.3 0.0 - 1.4 mg/dL LAB CHEMISTRY METHOD 08/23/2024 11:26 AM [facility] Blood Venous blood specimen / Unknown Venipuncture / Unknown 08/23/2024 10:45 AM EDT 08/23/2024 10:51 AM EDT us Trenton Sullivan MD LAB BLOOD ORDERABLES Final Result [facility] [address] [place] [address], from Last 3 Months or Most Recently Relevant to Health Maintenance Insurance MEDICAID - [place] Care Teams Hr Analyst Relationship Specialty Start Date End Date Physician, No Pcp PCP - General 05/03/24
--- OUTSIDE RECORDS SUMMARY | 2025-01-02 16:50 | XMS_ITS | Encounter Summary ---
Author Organization [employer] Address [address] [place] [address] [place] [address] Care Team Providers Care Director Labor Standards Name Role Phone Bonnie Gay MD Primary Care Provider [phone]- [phone] Gia Cintron PharmD Unavailable [phone] Reason for Referral * Consultation (Routine) - Closed Specialty Diagnoses / Procedures Referred By Contac t Referred To Contact Neurology Diagnoses LOC (loss of consciousness) (CMS/HCC) Disturbance of memory Bonnie Gay MD [address] [place] [address] Phone: tel: fax: Robel Rodriguez MD [address] [place] [address], [address] [place] [address] Phone: tel: fax: Referral ID Status Reason Start Date Expiration Date V isits Requested Visits Authorized [id number] Closed Specialty Services Required 02/14/2024 02/13/2025 1 1 Encounter Details Date Type Department Care Team (Late st Contact Info) Description 02/14/2024 Orders Only [facility] CHC MED & PEDS [address] [place], [place] [phone] Bonnie Gay MD [address] [place], [place] [phone] LOC (loss of consciousness) (CMS/HCC) (Primary Dx); [...] Upcoming Encounters Date Type Department Care Team ([facility] st Contact Info) Description 01/13/2025 1:00 PM EDT Medication Management [facility] MED & PEDS [address] [place] [address] Gia Cintron PharmD [address] [place] [address] 01/27/2025 11:30 AM EDT Office Visit [facility] MED & PEDS [address] [place] [address] Bonnie Gay MD [address] [place] [address] 02/03/2025 9:00 AM EDT Office Visit [facility] MED & PEDS [address] [place] [address] Tucker Moore MD [address] [place] [address] documented as of this encounter Procedures Procedure Name Priority Date/Time Associated Diagnosis Comments AMB REFERRAL TO NEUROLOGY Routine 04/23/2024 LOC (loss of consciousness) ([facility]) Disturbance of memory documented in this encounter [...] documented as of this encounter Care Teams Director Labor Standards Relationship Specialty Start Date End Date Bonnie Gay MD [address] [place] [id number] PCP - General Internal Medicine 04/17/15 Gia Cintron PharmD [address] [place], [place] [phone] Pharmacist Pharmacy 11/04/24 documented as of this encounter
--- OUTSIDE RECORDS SUMMARY | 2025-01-02 16:50 | XMS_ITS | Encounter Summary ---
Author Organization [employer] Address [address] [place] [address] 7 [place] [address] Care Team Providers Care Educational Recruiter Name Role Phone Bonnie Gay MD Primary Care Provider [phone]- [phone] Gia Cintron PharmD Unavailable [phone] Reason for Referral * Imaging (Routine) - Canceled Specialty Diagnoses / Procedures Referred By Kasi chen Referred To Contact Diagnoses LOC (loss of consciousness) ([facility]) Procedures Ambulatory EEG Bonnie Gay MD [address] [place] [address] Phone: tel: fax: Referral ID Status Reason Start Date Expiration Date V isits Requested Visits Authorized [id number] Canceled 11/08/2023 11/07/2024 1 1 * Imaging (Routine) - Closed Specialty Diagnoses / Procedures Referred By Kasi chen Referred To Contact Diagnoses LOC (loss of consciousness) ([facility]) Procedures Ambulatory EEG Bonnie Gay MD [address] [place] [address] Phone: tel: fax: [address] Phone: tel: fax: Referral ID Status Reason Start Date Expiration Date Visits Re quested Visits Authorized [id number] Closed 11/01/2023 10/31/2024 1 1 Encounter Details Date Type Department Care Team (Late Contact Info) Description 11/01/2023 Orders Only [facility] MED & PEDS [address] [place] [address] Bonnie Gay MD [address] [place] [address] LOC (loss of consciousness) (CMS/HCC) (Primary Dx) Social History Tobacco Use [...] Upcoming Encounters Date Type Department Care Team ([facility] Contact Info) Description 01/13/2025 1:00 PM EDT Medication Management [facility] MED & PEDS [address] [place] [address] Gia Cintron, PharmD [address] [place] [address] 01/27/2025 11:30 AM EDT Office Visit [facility] MED & PEDS [address] [place] [address] Bonnie Gay MD [address] [place] [address] 02/03/2025 9:00 AM EDT Office Visit [facility] MED & PEDS [address] [place] [address] Tucker Moore MD [address] [place] [address] Scheduled Orders Name Type Priority Associated Diagnoses Orde r Schedule Ambulatory EEG Neurology Routine LOC (loss of consciousness) ([facility]) Expected: 11/01/2023 (Approximate), Expires: 10/31/2024 Ambulatory EEG Neurology Routine LOC (loss of consciousness) ([facility]) Expected: 11/08/2023 (Approximate), Expires: 11/07/2024 documented as of this encounter Visit Diagnoses Diagnosis LOC (loss of consciousness) ([facility])- Primary Other alteration of consciousness documented in this encounter Additional Health Concerns Assessment Noted Time PHQ-9 Depression Total Score: 6 05/24/19 23 11:43 AM EST documented as of this encounter Care Teams Educational Recruiter Relationship Specialty Start Date End Date Bonnie Gay MD [address] [place] [address] PCP - General Internal Medicine 04/17/15 Gia Cintron PharmD [address] [place] [address] Pharmacist Pharmacy 11/04/24 documented as of this encounter
--- OUTSIDE RECORDS SUMMARY | 2025-01-02 16:50 | XMS_ITS | Encounter Summary ---
Author Organization [employer] Address [address] [place] [address] 7 [place] [address] Care Team Providers Care Backwinder Name Role Phone Bonnie Gay MD Primary Care Provider [phone]- [phone] Gia Cintron PharmD Unavailable [phone] Reason for Visit * Reason Onset Date Comments Nurse Triage 10/21/2022 Encounter Details Date Type Department Care Team ([facility] st Contact Info) Description 10/21/2022 Telephone [facility] CHC MED & PEDS [address] [place] [address] Bonnie Gay MD [address] [place] [address] Nurse Triage Social History Tobacco Use Types [...] and give arm support. Apt 10/25 @1100am [facility]. Pt insurance is verified as active [...] Description 01/13/2025 1:00 PM EDT Medication Management [facility] MED & PEDS [address] [place], [place] [phone] Gia Cintron, PharmD [address] [place] [address] 01/27/2025 11:30 AM EDT Office Visit [facility] MED & PEDS [address] [place] [address] Bonnie Gay MD [address] [place] [address] 02/03/2025 9:00 AM EDT Office Visit [facility] MED & PEDS [address] [place] [address] Tucker Moore MD [address] [place] [address] documented as of this encounter Visit Diagnoses Not on filedocumented in this encounter Additional Health Concerns Assessment Noted Time PHQ-9 Depression Total Score: 6 05/24/19 23 11:43 AM EST documented as of this encounter Care Teams Backwinder Relationship Specialty Start Date End Date Bonnie Gay MD [address] [place] [address] PCP - General Internal Medicine 04/17/15 Gia Cintron PharmD [address] [place] [address] Pharmacist Pharmacy 11/04/24 documented as of this encounter
== END 2025-01-02 17:08 | disposition left against medical advice (07) ==
PROVIDERS: Emergency Provider Emergency Medicine; PCP Student in an Organized Health Care Education/Training Program
DX: Z04.1 Encounter for examination and observation following transport accident (principal); M25.519 Pain in unspecified shoulder; M54.2 Cervicalgia; Z53.21 Procedure and treatment not carried out due to patient leaving prior to being seen by health care provider

== ENCOUNTER 2025-02-14 20:18 | Emergency (ER) | payer MEDICAID, SELFPAY ==
[2025-02-14 20:25] VITALS: BP 128/83; PULSE 89; RESP 16; TEMP 36.4; O2SAT 96
[2025-02-14 20:28] VITALS: BP 128/83; BP 160/60; PULSE 112; PULSE 89; RESP 17; TEMP 36.4; O2SAT 96; O2SAT 98; BMI 36.9
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
[2025-02-14 21:28] VITALS: BP 128/83; PULSE 89; RESP 17; TEMP 36.4; O2SAT 96
== END 2025-02-14 21:28 | disposition home or self-care (01) ==
PROVIDERS: Emergency Provider Emergency Medicine; PCP Internal Medicine
DX: S13.4XXA Sprain of ligaments of cervical spine, initial encounter (principal); S46.912A Strain of unspecified muscle, fascia and tendon at shoulder and upper arm level, left arm, initial encounter; M54.2 Cervicalgia; V43.52XA Car driver injured in collision with other type car in traffic accident, initial encounter; Y93.9 Activity, unspecified; Y92.410 Unspecified street and highway as the place of occurrence of the external cause; Y99.8 Other external cause status
CPT/HCPCS: 99283; 99284